=== PATIENT | female | born 1955 | race Caucasian/White ===

== ENCOUNTER 2016-11-07 03:07 | Emergency (ER) | payer SELFPAY ==
[2016-11-07] MEDS ORDERED: NARCAN 1 MG/ML IV ONE (03:08)
[2016-11-07] MEDS ORDERED: Sodium Chloride 0.9% 1000 ML 1,000 ML IV SCH (03:15)
[2016-11-07] MEDS ORDERED: Sodium Chloride 0.9% 1000 ML 1,000 ML ONE ×2 (03:17→03:35)
[2016-11-07] MEDS ORDERED: NARCAN 1 MG/ML ONE (03:17)
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
[2016-11-07 03:36] LABS: Mean Corpuscular Hemoglobin 29.6 pg (26-32); Mean Platelet Volume 11.7 fl (6-9.5); Platelet Count 167 K/mm3 (150-450); Red Blood Count 3.98 M/mm3 (4.1-5.4); Red Cell Distribution Width 14.4 % (11.5-14.0); White Blood Count 11.4 K/mm3 (4.0-10.5)
[2016-11-07 03:41] LABS: A-aADO2 614; ARTERIAL BLD GAS O2 SATURATION 92.3 % (95-100); ARTERIAL BLOOD GAS BASE EXCESS -12.4 (-2.0-2.0); ARTERIAL BLOOD GAS FIO2 100 %; ARTERIAL BLOOD GAS PO2 52 mmHg (75-100)
[2016-11-07] MEDS ORDERED: Zosyn 3.375GM/100 Ml D5W 100 ML IV ONE ×2 (03:58→04:21)
[2016-11-07 04:26] LABS: ALBUMIN 3.2 g/dL (3.4-5.0); ALKALINE PHOSPHATASE 107 U/L (46-116); ANION GAP 29.2 MEQ/L (5-15); BILIRUBIN,TOTAL 0.4 mg/dL (0.2-1.0); BLOOD UREA NITROGEN 79 mg/dL (9-20); CHLORIDE 102 mEq/L (98-107); Glucose 101 MG/DL (70-110); SGOT/AST 84 U/L (15-37); SGPT/ALT 25 U/L (12-78); SODIUM 137 mEq/L (136-145); Total Protein 6.3 gm/dL (6.4-8.2)
[2016-11-07 04:28] LABS: Carbon Dioxide 13.4 mEq/L (21-32)
[2016-11-07 04:29] LABS: ACETAMINOPHEN < 2.0 ug/ml (10-30); TROPONIN 0.059 ng/ml (0.000-0.056)
[2016-11-07 04:52] LABS: ALLEN TEST OK? NO
[2016-11-07 04:58] LABS: BAND 8 % (0.0-2.0); Platelet Estimate NORMAL (NORMAL); Total Cells Counted 100
[2016-11-07 05:02] LABS: Bacteria MODERATE /HPF (NEGATIVE); COMPLETE URINE MICROSCOPIC? YES; Collection Type CATH; Epithelial Cells FEW /HPF (FEW); Mucus SLIGHT /HPF (NEGATIVE); Ph 5.5 (5-6)
[2016-11-07] MEDS ORDERED: NovoLIN R IV ONE (05:03)
[2016-11-07] MEDS ORDERED: D50W 50 ml Abboject IV ONE (05:04)
[2016-11-07] MEDS ORDERED: NovoLIN R ONE (05:07)
[2016-11-07] MEDS ORDERED: Sodium Bicarbonate 50 MEQ/50 ML VIAL ONE (05:07)
[2016-11-07 05:09] LABS: A-aADO2 600; ARTERIAL BLD GAS O2 SATURATION 86.7 % (95-100); ARTERIAL BLOOD GAS BASE EXCESS -14.4 (-2.0-2.0); ARTERIAL BLOOD GAS FIO2 100 %; ARTERIAL BLOOD GAS pH 7.08 (7.35-7.45)
[2016-11-07 05:09] LABS: LIPASE 612 U/L (73-393)
[2016-11-07 05:10] LABS: ARTERIAL BLOOD GAS PO2 48 mmHg (75-100)
[2016-11-07] MEDS ORDERED: Sodium Chloride 0.9% 100 ML IVPB 100 ML IV ONE (05:13)
[2016-11-07] MEDS ORDERED: Sodium Bicarbonate 50 MEQ/50 ML VIAL IV SCH (05:15)
[2016-11-07 05:23] LABS: A-aADO2 608; ARTERIAL BLD GAS O2 SATURATION 83.4 % (95-100); ARTERIAL BLOOD GAS BASE EXCESS -13.8 (-2.0-2.0); ARTERIAL BLOOD GAS FIO2 100 %
[2016-11-07 05:24] LABS: ARTERIAL BLOOD GAS PO2 43 mmHg (75-100)
[2016-11-07 05:25] LABS: ARTERIAL BLD GAS TIDAL VOLUME 500 cc
[2016-11-07 06:46] VITALS: BP 80/50; PULSE 60; O2SAT 93
--- NOTE | 2016-11-07 08:41 | XRAY ---
Indication: Altered mental status. Unresponsive. History of ovarian cancer. Comparison: October 18, 2016 Portable chest unchanged again hyperinflated with scattered calcified granulomas. No focal infiltrate, consolidation, or large effusion. Heart is not enlarged. No new/acute findings. Impression: Stable nonacute chest with again evidence for old granulomatous disease.
--- NOTE | 2016-11-07 08:45 | XRAY ---
Indication: Endotracheal tube repositioning. Comparison: Earlier in the day. Portable chest demonstrates endotracheal tube withdrawal with the tip now 4 cm above the [place]. Stable underinflated left lung and left base atelectasis. New right base infiltrate/atelectasis. Heart is not enlarged.
--- NOTE | 2016-11-07 08:45 | XRAY ---
Indication: Intubation. Comparison: Earlier in the day. Portable chest demonstrates new endotracheal tube with the tip in the right mainstem bronchus. Subsequent left lung underinflation with left base atelectasis. Follow-up chest radiograph demonstrates good repositioning.
--- NOTE | 2016-11-07 08:56 | XRAY ---
Indication: Altered mental status. Unresponsive. Multiple contiguous axial images obtained through the head without contrast. Comparison: June 14, 2016 Study slightly degraded by motion artifact even with repeat CT. There is now a 2 cm round hypodensity in the inferior right cerebellum with possible smaller focus in the left cerebellum, mass versus ischemic event. No gross acute intracranial hemorrhage, abnormal extra-axial fluid collection, or mass effect. Fourth ventricle is midline without hydrocephalus. Cerebral abdalla-white matter differentiation preserved. Bony calvarium intact. Visualized paranasal sinuses and mastoid air cells are clear. Impression: Motion artifact. New bilateral cerebellar hypoattenuations, mass versus ischemia. No acute hemorrhage or mass effect. MRI brain with contrast may yield further information. Comment: Preliminary interpretation was made by [facility]. No discrepancy. CT DI 60.80
== END 2016-11-07 05:40 | disposition critical access hospital (66) ==
LOC: ED 03:07
DX: I63.9 Cerebral infarction, unspecified (principal); T68.XXXA Hypothermia, initial encounter; J96.00 Acute respiratory failure, unspecified whether with hypoxia or hypercapnia; R74.0 Nonspecific elevation of levels of transaminase and lactic acid dehydrogenase [LDH]; J44.9 Chronic obstructive pulmonary disease, unspecified; I10 Essential (primary) hypertension; K21.9 Gastro-esophageal reflux disease without esophagitis; Z79.899 Other long term (current) drug therapy; H61.23 Impacted cerumen, bilateral
CPT/HCPCS: 31500; 36000; 36415; 36600; 51702; 70450; 71010; 80053; 80307; 80320; 81000; 82150; 82375; 82803; 82947; 82962; 83605; 83690; 83986; 84484; 85025; 87040; 93005; 93041; 94002; 94770; 96360; 96361; 96365; 96367; 96374; 96375; 99285; 99291; 99292; G0479; G0481; J2310; J2543

== ENCOUNTER 2017-01-31 14:13 | Observation (INO) | payer SELFPAY ==
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
[2017-01-31] MEDS ORDERED: Sodium Chloride 0.9% 1000 ML 1,000 ML IV SCH (14:45)
[2017-01-31] MEDS ORDERED: Sodium Chloride 0.9% 1000 ML 1,000 ML ONE (14:45)
[2017-01-31 15:13] LABS: Eosinophil % 0.5 % (0.00-5.0); Lymphocytes % 20.2 % (24.0-44.0); Mean Cell Volume 92.8 fl (78-100); Mean Platelet Volume 10.8 fl (6-9.5); Monocytes % 12.3 % (0.0-12.0); Platelet Count 107 K/mm3 (150-450); Red Blood Count 3.77 M/mm3 (4.1-5.4); Red Cell Distribution Width 14.2 % (11.5-14.0)
[2017-01-31 15:14] LABS: Mean Corpuscular Hemoglobin 29.9 pg (26-32)
[2017-01-31 15:23] LABS: ALBUMIN 3.6 g/dL (3.4-5.0); ALKALINE PHOSPHATASE 82 U/L (46-116); ANION GAP 14.2 MEQ/L (5-15); BILIRUBIN,TOTAL 0.4 mg/dL (0.2-1.0); BLOOD UREA NITROGEN 7 mg/dL (9-20); CHLORIDE 103 mEq/L (98-107); Carbon Dioxide 25.2 mEq/L (21-32); Glucose 88 MG/DL (70-110); Potassium 3.7 mEq/L (3.5-5.1); SGOT/AST 25 U/L (15-37); SGPT/ALT 22 U/L (12-78); SODIUM 139 mEq/L (136-145); Total Protein 6.4 gm/dL (6.4-8.2)
--- NOTE | 2017-01-31 15:36 | XRAY ---
Exam: AP portable chest film from 1446 hrs. on 01/31/2017. Comparison: AP supine portable chest film from 11/07/2016. Indication: Patient earlier today and was found wandering around neighborhood confused, history of strokes. Findings: Previously noted bibasilar airspace disease on 11/07/2016 has resolved. The transverse heart size appears within normal limits for this AP portable technique. There is mild tortuosity of both the ascending and descending thoracic aorta. Scattered small calcified granulomas are seen within the elsie, carinal region, distal right paratracheal projection, and both lung gardner consistent with old healed granulomatous disease. No air space infiltrates, vascular congestion, pneumothorax, or pleural fluid is seen. I note some surgical clips within the right upper quadrant. In addition, there are at least several adjacent calcifications within the right upper quadrant which appear to be due to gallstones, as seen on the CT of the abdomen from 03/13/2015. No acute osseous process is seen. Mild convexity of the upper thoracic spine toward the left is seen. Impression: 1. No acute cardiopulmonary process is seen. Prior bibasilar airspace disease on 11/07/2016 has resolved. 2. Old healed granulomatous disease. 3. Cholelithiasis.
--- NOTE | 2017-01-31 17:03 | XRAY ---
Exam: CT of the head without IV contrast from 01/31/2017. CTDI: 60.80. Comparison: CT of the head without IV contrast from 11/07/2016. Indication: Confusion, family states patient has history of strokes. Found by family member in seated position foaming at mouth unresponsive Technique: Non-IV contrast axial images were obtained through the brain. Reconstructed coronal and sagittal images were created and reviewed. Findings: The ventricles appear of normal size. No focal mass effect or midline shift is seen. Motion artifact limits the study despite some repeat images. I see no acute intracranial bleed or abnormal extra-axial fluid collection. I see atherosclerotic vascular calcification within the distal vertebral arteries, left greater than right. Previously described low-attenuation lesions within the cerebellar hemispheres are not definitely seen on the current study. I again note extensive white matter changes within both frontal regions representing no significant change, likely due to microvascular disease. I see evidence of an old focal infarct within the right caudate nucleus, the anterior margin of the left caudate nucleus, and within the left lentiform nucleus. This appears similar to the previous study. Prior low-attenuation probable infarct within the medial margin of the right lentiform nucleus is not seen on the current study. No new definite new low attenuation infarcts are seen. The cortical sulci and basilar cisterns appear unremarkable. The calvarium of the skull appears intact. Mild mucosal thickening is seen within the right ethmoid sinus and right side of the frontal sinus. There is also some minor mucosal thickening within left side of the sphenoid sinus. These findings are probably chronic. The mastoid air cells appear clear. Impression: 1. The study is motion limited. 2. I see no evidence of acute intracranial hemorrhage, focal mass effect, or midline shift. 3. There appear to be bilateral lacunar infarcts within or adjacent to the head of each caudate nucleus and the left lentiform nucleus representing no significant change from 11/07/2016. Prior low-attenuation lesion at the medial aspect of the right lentiform nucleus is not definitely seen on the current study. Neither do I see evidence of cerebellar infarcts, as questioned on the prior study of 11/07/2016. 4. Extensive periventricular and subcortical white matter changes are seen within the bifrontal region, likely due to chronic small vessel ischemic disease. 5. Extensive atherosclerotic vascular calcification is seen within the distal vertebral arteries, left greater than right. Consider diabetes. 6. Minimal chronic paranasal sinus disease as discussed above. No air-fluid levels are seen.
[2017-01-31] MEDS ORDERED: NORCO 7.5/325 MG TAB PO PRN (17:53)
[2017-01-31 18:20] LABS: COMPLETE URINE MICROSCOPIC? YES; Collection Type CATH
[2017-01-31 18:21] LABS: Bacteria MANY /HPF (NEGATIVE)
[2017-01-31] MEDS: Sodium Chloride 0.9% 1000 ML 1,000 ML IV SCH (20:08)
[2017-01-31] MEDS: NEURONTIN 300 MG PO SCH (22:22)
[2017-01-31] MEDS: Klonopin 0.5 MG PO SCH (22:22)
[2017-02-01] MEDS: Sodium Chloride 0.9% 1000 ML 1,000 ML IV SCH (08:20)
[2017-02-01] MEDS: NEURONTIN 300 MG PO SCH ×3 (08:20→20:44)
[2017-02-01] MEDS: Klonopin 0.5 MG PO SCH (08:20)
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
--- NOTE | 2017-02-01 08:55 | PCM.NOTE ---
Date and Time: 02/01/17 0843 Subjective Assessment: Her nurse reports she was alert and oriented x 3 for her last night. This AM she says the year is 2012 and that she is at the half-way in [place]. She reports her name is Jaye Duenas. She denies pain. She cannot give me the phone number of a friend when I asked if there was someone I could call to see how she had been doing at home. Notes from Dr. Qiu say she was on hospice when released from [facility] in October but that she was then taken off hospice. His not also says she did not give complete answers when answering questions and that she was unsteady on her feet. - Review of Systems Constitutional: No Symptoms Eyes: No Symptoms Ears, Nose, & Throat: No Symptoms Respiratory: No Symptoms Cardiac: No Symptoms Abdominal/Gastrointestinal: No Symptoms Genitourinary Symptoms: Dysuria Musculoskeletal: No Symptoms Skin: No Symptoms Neurological: No Symptoms Objective Exam General Appearance: no apparent distress, thin Neurologic Exam: alert, other (not oriented to person, place or time) Skin Exam: normal color, warm, dry Respiratory Exam: normal breath sounds, lungs clear, airway intact, No respiratory distress, No crackles/rales, No rhonchi, No wheezing Cardiovascular Exam: regular rate/rhythm, normal heart sounds, No murmur, No friction rub, No gallop Gastrointestinal/Abdomen Exam: soft, normal bowel sounds, No tenderness, No distention, No mass Extremity Exam: normal inspection, other (no c/c/e) OBJECTIVE DATA Vital Signs: Vital Signs - 24 hr Temp Pulse Resp BP Pulse Ox 02/01/17 08:00 98.7 F 77 20 106/67 96 02/01/17 04:00 98.7 F 67 16 113/59 97 01/31/17 23:38 98.7 F 73 15 123/72 98 01/31/17 19:40 99.1 F 74 16 127/62 99 01/31/17 18:41 98.1 F 71 18 120/81 98 01/31/17 17:55 98 01/31/17 17:03 71 18 120/81 99 01/31/17 16:11 81 107/74 98 01/31/17 14:19 98.1 F 74 18 102/67 98 Pain Assessment - Last Documented Pain Intensity 3 Pain Scale Used 0-10 Pain Scale Intake and Output: Intake & Output 01/30/17 01/31/17 02/01/17 02/02/17 06:59 06:59 06:59 06:59 Intake Total 680 Balance 680 Weight 58.967 kg Lab Results: Lab Results-Last 24 Hours 01/31/17 02/01/17 02/01/17 Range/Units 21:00 00:00 03:00 Troponin I < 0.017 < 0.017 < 0.017 (0.000-0.056) ng/ml Assessment/Plan (1) Altered mental status Current Visit: Yes Status: Acute Assessment & Plan: Will check CMP today, Vit B 12, folate and TSH. Will try to also obtain records from [facility]. She needs a social service evaluation and discharge planning consult. Will have PT access her gait. Code(s): R41.82 - ALTERED MENTAL STATUS, UNSPECIFIED
[2017-02-01] MEDS: TYLENOL 325 MG PO PRN ×2 (09:06→19:24)
[2017-02-01] MEDS: Cipro 500 MG PO SCH ×2 (09:06→20:44)
[2017-02-01] MEDS ORDERED: Zestril 20 MG*** 20 MG, hydroDIURIL 25 MG*** 12.5 MG PO SCH ×2 (10:00)
[2017-02-01 10:24] LABS: ALBUMIN 3.2 g/dL (3.4-5.0); ALKALINE PHOSPHATASE 77 U/L (46-116); ANION GAP 11.6 MEQ/L (5-15); BILIRUBIN,TOTAL 0.3 mg/dL (0.2-1.0); BLOOD UREA NITROGEN 8 mg/dL (9-20); CHLORIDE 108 mEq/L (98-107); Carbon Dioxide 25.1 mEq/L (21-32); Glucose 109 MG/DL (70-110); Potassium 3.6 mEq/L (3.5-5.1); SGOT/AST 25 U/L (15-37); SGPT/ALT 23 U/L (12-78); SODIUM 141 mEq/L (136-145); Total Protein 5.6 gm/dL (6.4-8.2)
[2017-02-01] MEDS: Lexapro 10 MG PO SCH (14:33)
[2017-02-01] MEDS: THERAGRAN MULTIVITAMIN PO SCH (14:33)
[2017-02-01] MEDS: ECOTRIN 81 MG PO SCH (14:33)
[2017-02-01] MEDS: Klonopin 0.5 MG PO PRN (14:33)
[2017-02-02] MEDS: TYLENOL 325 MG PO PRN ×2 (04:20→13:16)
[2017-02-02] MEDS: ECOTRIN 81 MG PO SCH (09:49)
[2017-02-02] MEDS: Cipro 500 MG PO SCH ×2 (09:49→22:30)
[2017-02-02] MEDS: THERAGRAN MULTIVITAMIN PO SCH (09:49)
[2017-02-02] MEDS: NEURONTIN 300 MG PO SCH ×3 (09:49→22:30)
[2017-02-02] MEDS: Lexapro 10 MG PO SCH (09:49)
[2017-02-02] MEDS ORDERED: BABY ASPIRIN 81 MG CHEW PO SCH (10:00)
[2017-02-02] MEDS ORDERED: NON-FORMULARY ITEM (Multivitamin [Multi-Vitamin Daily] 1 EACH) PO SCH (10:00)
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
[2017-02-02] MEDS: Klonopin 0.5 MG PO PRN (22:32)
[2017-02-03] MEDS: TYLENOL 325 MG PO PRN ×2 (08:17→15:39)
--- NOTE | 2017-02-03 09:07 | PCM.NOTE ---
Date and Time: 02/03/17902 Subjective Assessment: Please see addiction social worker's note and [facility] note which I reviewed. Patient states that her right knee hurts a little and she has been walking a little more so that is why it is sore. She denies pain anywhere else. - Review of Systems Constitutional: No Symptoms Eyes: No Symptoms Ears, Nose, & Throat: No Symptoms Respiratory: No Symptoms Cardiac: No Symptoms Abdominal/Gastrointestinal: No Symptoms Genitourinary Symptoms: No Symptoms Musculoskeletal: Joint Pain Skin: No Symptoms Objective Exam General Appearance: no apparent distress, alert Neurologic Exam: alert, other (She state she is at [facility] and the year is 19-- and she does know her name) Skin Exam: normal color, warm, dry, No rash Neck Exam: normal inspection Respiratory Exam: normal breath sounds, lungs clear, airway intact, No crackles/ rales, No rhonchi, No wheezing Cardiovascular Exam: regular rate/rhythm, normal heart sounds, No murmur, No friction rub, No gallop Gastrointestinal/Abdomen Exam: soft, normal bowel sounds, No tenderness, No distention, No mass Extremity Exam: normal inspection, other (no c/c/e, no swelling or erythyema of right knee, no brusing of knee) OBJECTIVE DATA Vital Signs: Vital Signs - 24 hr Temp Pulse Resp BP Pulse Ox 02/03/17 08:00 99.3 F 82 18 106/57 93 L 02/03/17 04:00 98.5 F 78 18 127/65 97 02/02/17 23:58 98.8 F 71 18 141/60 97 02/02/17 20:00 99.3 F 80 16 141/72 97 02/02/17 16:10 97.6 F 97 H 20 124/58 96 02/02/17 12:12 97.9 F 68 18 123/75 96 Pain Assessment - Last Documented Pain Intensity 5 Pain Scale Used 0-10 Pain Scale Intake and Output: Intake & Output 02/01/17 02/02/17 02/03/17 02/04/17 06:59 06:59 06:59 06:59 Intake Total 680 1800 1400 Output Total 2000 Balance 680 -200 1400 Weight 58.967 kg 58.967 kg Assessment/Plan (1) Altered mental status Current Visit: Yes Status: Acute Assessment & Plan: She had a competency evaluation and is not competent to make her own medical decisions. APS has been consulted and the social work that saw her is recommending placement in a nursing facility. Discharge planning is working on her insurance coverage. Patient appears to be at her baseline mental status from the reports we have received from [facility] PCP and [facility]. Code(s): R41.82 - ALTERED MENTAL STATUS, UNSPECIFIED (2) UTI (urinary tract infection) Current Visit: Yes Status: Acute Assessment & Plan: Continue cipro. Urine cx growing gram neg michele. Code(s): N39.0 - URINARY TRACT INFECTION, SITE NOT SPECIFIED
[2017-02-03] MEDS: ECOTRIN 81 MG PO SCH (10:18)
[2017-02-03] MEDS: Lexapro 10 MG PO SCH (10:18)
[2017-02-03] MEDS: THERAGRAN MULTIVITAMIN PO SCH (10:18)
[2017-02-03] MEDS: Cipro 500 MG PO SCH ×2 (10:18→22:07)
[2017-02-03] MEDS: NEURONTIN 300 MG PO SCH ×3 (10:18→22:07)
[2017-02-03] MEDS: Klonopin 0.5 MG PO PRN (22:07)
[2017-02-04] MEDS: ECOTRIN 81 MG PO SCH (10:29)
[2017-02-04] MEDS: Lexapro 10 MG PO SCH (10:29)
[2017-02-04] MEDS: NEURONTIN 300 MG PO SCH ×3 (10:29→22:36)
[2017-02-04] MEDS: THERAGRAN MULTIVITAMIN PO SCH (10:29)
[2017-02-04] MEDS: Cipro 500 MG PO SCH ×2 (10:35→22:45)
[2017-02-04] MEDS: Klonopin 0.5 MG PO PRN ×2 (10:35→22:36)
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
[2017-02-04] MEDS: Nicoderm CQ 21 MG TOP SCH (11:09)
[2017-02-04] MEDS: TYLENOL 325 MG PO PRN (14:17)
--- NOTE | 2017-02-05 08:21 | PCM.NOTE ---
Date and Time: 02/05/17818 Subjective Assessment: patient oriented to self, disoriented to place or time. thinks she is in [place] and the year is 1999 something and the month if nov or december. Objective Exam General Appearance: no apparent distress, thin Neurologic Exam: alert Skin Exam: normal color, warm, dry Respiratory Exam: normal breath sounds, lungs clear, No respiratory distress Cardiovascular Exam: regular rate/rhythm, normal heart sounds Gastrointestinal/Abdomen Exam: soft, No tenderness, No mass OBJECTIVE DATA Vital Signs: Vital Signs - 24 hr Temp Pulse Resp BP Pulse Ox 02/05/17 07:15 98.2 F 68 18 142/71 98 02/05/17 04:00 98.4 F 70 16 114/68 95 02/05/17 00:00 98.0 F 69 15 106/63 95 02/04/17 20:00 98.9 F 72 14 127/74 94 L 02/04/17 16:00 98.7 F 65 20 127/74 96 02/04/17 11:40 99.0 F 66 17 156/72 94 L Pain Assessment - Last Documented Pain Intensity 7 Pain Scale Used [facility] Intake and Output: Intake & Output 02/02/17 02/03/17 02/04/17 02/05/17 11:59 11:59 11:59 11:59 Intake Total 1800 1640 1750 800 Output Total 2000 900 900 Balance -200 1640 850 -100 Weight 58.967 kg Assessment/Plan (1) Altered mental status Current Visit: Yes Status: Acute Assessment & Plan: awaiting APS recommendations apparently Code(s): R41.82 - ALTERED MENTAL STATUS, UNSPECIFIED (2) UTI (urinary tract infection) Current Visit: Yes Status: Acute Assessment & Plan: on cipro Code(s): N39.0 - URINARY TRACT INFECTION, SITE NOT SPECIFIED
[2017-02-05] MEDS: NEURONTIN 300 MG PO SCH ×3 (09:23→21:39)
[2017-02-05] MEDS: THERAGRAN MULTIVITAMIN PO SCH (09:23)
[2017-02-05] MEDS: ECOTRIN 81 MG PO SCH (09:23)
[2017-02-05] MEDS: Cipro 500 MG PO SCH ×2 (09:23→21:38)
[2017-02-05] MEDS: Lexapro 10 MG PO SCH (09:23)
[2017-02-05] MEDS: Nicoderm CQ 21 MG TOP SCH (09:24)
[2017-02-05] MEDS: Klonopin 0.5 MG PO PRN ×2 (14:58→21:39)
--- NOTE | 2017-02-06 08:43 | PCM.NOTE ---
Date and Time: 02/06/17 0840 Subjective Assessment: I was at the nurses station getting ready to go see Jaye and she came up to me and asked if I could tell her what room she was in because she forgot. She has been in the same room since her admission 01/31/17. She reports she has a little dysuria. She denies pain. She is talking about jumping in her room looking for her medicine because it was there and then Taco locked it up and she reports he is now in [place] and that he left her a note saying he went to [place]. - Review of Systems Constitutional: No Symptoms Eyes: No Symptoms Ears, Nose, & Throat: No Symptoms Respiratory: No Symptoms Cardiac: No Symptoms Abdominal/Gastrointestinal: No Symptoms Genitourinary Symptoms: Dysuria Musculoskeletal: No Symptoms Skin: No Symptoms Neurological: No Symptoms Objective Exam General Appearance: no apparent distress, alert Neurologic Exam: alert, cooperative Skin Exam: normal color, warm, dry, No rash Respiratory Exam: normal breath sounds, lungs clear, No crackles/rales, No rhonchi, No wheezing Cardiovascular Exam: regular rate/rhythm, normal heart sounds, No murmur, No friction rub, No gallop Gastrointestinal/Abdomen Exam: soft, normal bowel sounds, No tenderness, No distention, No mass Extremity Exam: other (no c/c/e) OBJECTIVE DATA Vital Signs: Vital Signs - 24 hr Temp Pulse Resp BP Pulse Ox 02/06/17 08:00 98.2 F 73 18 117/63 95 02/06/17 04:00 98.3 F 67 13 102/57 95 02/06/17 00:00 98.2 F 68 20 118/60 97 02/05/17 19:56 99.1 F 75 13 116/67 94 L 02/05/17 15:48 98.2 F 97 H 18 138/75 98 02/05/17 12:00 99.0 F 67 18 127/76 94 L Pain Assessment - Last Documented Pain Intensity 7 Pain Scale Used [facility] Intake and Output: Intake & Output 02/04/17 02/05/17 02/06/17 02/07/17 06:59 06:59 06:59 06:59 Intake Total 2120 1150 2360 Output Total 900 900 Balance 0439 [id number] [id number] Assessment/Plan (1) Altered mental status Current Visit: Yes Status: Acute Assessment & Plan: Continues to be unchanged from what must be her baseline. Awaiting APS recommendations. Code(s): R41.82 - ALTERED MENTAL STATUS, UNSPECIFIED (2) UTI (urinary tract infection) Current Visit: Yes Status: Acute Assessment & Plan: Completed cipro. Code(s): N39.0 - URINARY TRACT INFECTION, SITE NOT SPECIFIED (3) Dysuria Current Visit: Yes Status: Acute Assessment & Plan: Will check high risk profile for STD's. Code(s): R30.0 - DYSURIA
[2017-02-06] MEDS: THERAGRAN MULTIVITAMIN PO SCH (09:18)
[2017-02-06] MEDS: Lexapro 10 MG PO SCH (09:18)
[2017-02-06] MEDS: NEURONTIN 300 MG PO SCH ×3 (09:19→21:32)
[2017-02-06] MEDS: ECOTRIN 81 MG PO SCH (09:19)
[2017-02-06] MEDS: Nicoderm CQ 21 MG TOP SCH (09:21)
[2017-02-06] MEDS: Klonopin 0.5 MG PO PRN ×2 (12:28→21:33)
[2017-02-06] MEDS: TYLENOL 325 MG PO PRN (13:49)
[2017-02-07] MEDS: TYLENOL 325 MG PO PRN ×3 (05:37→15:07)
--- NOTE | 2017-02-07 08:21 | PCM.NOTE ---
Date and Time: 02/07/17817 Subjective Assessment: Patient denies constipation. States her appetite has been good. She states she is ready to go home and that she plans to go to her dad's in [place]. I explained that we are waiting on another group of people to see her to make sure that when she is discharged that she is in a safe place. - Review of Systems Constitutional: No Symptoms Eyes: No Symptoms Ears, Nose, & Throat: No Symptoms Respiratory: No Symptoms Cardiac: No Symptoms Abdominal/Gastrointestinal: No Symptoms Genitourinary Symptoms: No Symptoms Musculoskeletal: No Symptoms Skin: No Symptoms Objective Exam General Appearance: no apparent distress, alert Neurologic Exam: alert, cooperative, other (Says year is 2013 and that she is at [facility]. She knows her name.) Skin Exam: normal color, warm, dry, No rash Respiratory Exam: normal breath sounds, lungs clear, No crackles/rales, No rhonchi, No wheezing Cardiovascular Exam: regular rate/rhythm, normal heart sounds, No murmur, No friction rub, No gallop Gastrointestinal/Abdomen Exam: soft, normal bowel sounds, No tenderness, No distention, No mass Extremity Exam: normal inspection, other (no c/c/e) OBJECTIVE DATA Vital Signs: Vital Signs - 24 hr Temp Pulse Resp BP Pulse Ox 02/07/17 07:43 98.5 F 63 17 128/81 97 02/07/17 04:00 98.2 F 65 18 126/59 97 02/07/17 00:00 16 02/06/17 20:00 99.0 F 76 21 141/80 93 L 02/06/17 16:00 98.0 F 63 18 132/73 98 02/06/17 12:00 98.8 F 72 20 136/79 96 Pain Assessment - Last Documented Pain Intensity 6 Pain Scale Used [facility] Intake and Output: Intake & Output 02/05/17 02/06/17 02/07/17 02/08/17 06:59 06:59 06:59 06:59 Intake Total 1150 2360 1760 Output Total 900 Balance 250 2360 1760 Multi-Disciplinary Progress Notes: Multi-Disciplinary Progress Notes 02/06/17 09:45 (created 02/06/17 11:33) Case Management Note by Nathaly Khan REVIEWED DISCHARGE PLAN. CONTINUE TO AWAIT APS TO VISIT. PT CONTINUES TO BE CONFUSED AT TIMES. REDIRECTED TO ROOM. PLEASANT AND COOPERATIVE. WILL CONTINUE TO FOLLOW FOR ALL DC NEEDS. Initialized on 02/06/17 11:33 - END OF NOTE Assessment/Plan (1) Altered mental status Current Visit: Yes Status: Acute Assessment & Plan: Continue to await APS visit and recommendation on placement or safe place for discharge. Seems to be at her baseline. Code(s): R41.82 - ALTERED MENTAL STATUS, UNSPECIFIED (2) UTI (urinary tract infection) Current Visit: Yes Status: Resolved Code(s): N39.0 - URINARY TRACT INFECTION , SITE NOT SPECIFIED (3) Dysuria Current Visit: Yes Status: Acute Assessment & Plan: High risk profile ordered which includes urine for GC/CT. Code(s): R30.0 - DYSURIA
[2017-02-07] MEDS: ECOTRIN 81 MG PO SCH (11:02)
[2017-02-07] MEDS: THERAGRAN MULTIVITAMIN PO SCH (11:02)
[2017-02-07] MEDS: Nicoderm CQ 21 MG TOP SCH (11:02)
[2017-02-07] MEDS: Lexapro 10 MG PO SCH (11:02)
[2017-02-07] MEDS: NEURONTIN 300 MG PO SCH ×3 (11:02→22:16)
[2017-02-07] MEDS: Klonopin 0.5 MG PO PRN ×2 (11:02→22:16)
[2017-02-07 12:22] LABS: Hepatits B Sur Ag Screen Non Reactive (Non Reactive); Hepatits C Antibody by EIA Weak Reactive (Non Reactive)
[2017-02-07 12:23] LABS: Hepatitis B Surface Ab.Quant <3.50 mIU/mL (0.00-8.49)
[2017-02-08] MEDS: TYLENOL 325 MG PO PRN ×2 (05:12→20:56)
--- NOTE | 2017-02-08 08:27 | PCM.NOTE ---
Date and Time: 02/08/17820 Subjective Assessment: While she said she was going to stay with her dad, today she says he has and she talked to her mom and is planning on staying with her. She denies constipation or shortness of breath. She reports she has been mad about Mehran and states that she yelled at him while she was here but I don't see any nursing notes to this affect. - Review of Systems Constitutional: No Symptoms Eyes: No Symptoms Ears, Nose, & Throat: No Symptoms Respiratory: No Symptoms Cardiac: No Symptoms Abdominal/Gastrointestinal: No Symptoms Genitourinary Symptoms: No Symptoms Musculoskeletal: No Symptoms Skin: No Symptoms Objective Exam General Appearance: no apparent distress Neurologic Exam: alert, cooperative Skin Exam: normal color, warm, dry, No rash Respiratory Exam: normal breath sounds, lungs clear, No crackles/rales, No rhonchi, No wheezing Cardiovascular Exam: regular rate/rhythm, normal heart sounds, No murmur, No friction rub, No gallop Gastrointestinal/Abdomen Exam: soft, normal bowel sounds, No tenderness, No distention, No mass Extremity Exam: other (no c/c/e) OBJECTIVE DATA Vital Signs: Vital Signs - 24 hr Temp Pulse Resp BP Pulse Ox 02/08/17 07:46 98.2 F 64 20 122/67 98 02/08/17 04:00 98.3 F 76 16 132/70 95 02/08/17 00:00 97.9 F 65 14 110/56 96 02/07/17 20:00 99.0 F 70 15 128/74 95 02/07/17 16:00 99.0 F 70 17 122/84 97 02/07/17 12:00 98.1 F 65 18 135/63 96 Pain Assessment - Last Documented Pain Intensity 6 Pain Scale Used 0-10 Pain Scale Intake and Output: Intake & Output 02/06/17 02/07/17 02/08/17 02/09/17 06:59 06:59 06:59 06:59 Intake Total 2360 1760 940 Balance 2360 1760 940 Lab Results: Lab Results-Last 24 Hours 02/06/17 Range/Units 13:00 Hep Bs Antigen Non Reactive (Non Reactive) Hep Bs Antibody, Quant <3.50 (0.00-8.49) mIU/mL Hepatitis C Antibody Weak Reactive H (Non Reactive) HIV Ag/Ab Combo Qual Pending HIV Ag/Ab Interpret Pending Assessment/Plan (1) Altered mental status Current Visit: Yes Status: Acute Assessment & Plan: At her baseline it appears. Awaiting APS recommendations. She will need a safe place to go upon her discharge. Code(s): R41.82 - ALTERED MENTAL STATUS, UNSPECIFIED (2) Hepatitis C antibody positive in blood Current Visit: Yes Status: Acute Assessment & Plan: Checking HCV RNA. The rest of the high risk profile is pending Code(s): R76.8 - OTHER SPECIFIED ABNORMAL IMMUNOLOGICAL FINDINGS IN SERUM
[2017-02-08] MEDS: Nicoderm CQ 21 MG TOP SCH (09:51)
[2017-02-08] MEDS: Lexapro 10 MG PO SCH (09:51)
[2017-02-08] MEDS: NEURONTIN 300 MG PO SCH ×3 (09:51→20:56)
[2017-02-08] MEDS: THERAGRAN MULTIVITAMIN PO SCH (09:51)
[2017-02-08] MEDS: ECOTRIN 81 MG PO SCH (09:51)
[2017-02-08 11:52] LABS: Collection Type CCMS
[2017-02-08 11:53] LABS: ADD URINE CULTURE? NO (NO); COMPLETE URINE MICROSCOPIC? NO
[2017-02-08 13:59] LABS: CHLAMYDIA URINE NEGATIVE; GC URINE NEGATIVE
--- NOTE | 2017-02-08 14:11 | PCM.DCORD ---
- Discharge Discharge Date: 02/08/17 Disposition: DC TO ANY "OTHER" CUSTODIAL Condition: Fair Prescriptions: New Nicotine 21 mg [Nicoderm CQ 21 MG] 21 mg TOP Q24H10 #0 patch Acetaminophen 325 mg [Tylenol 325 mg] 650 mg PO Q4H PRN PRN #0 tablet PRN Reason: Pain And/Or Fever Continue Multivitamin [Multi-Vitamin Daily] 1 each PO DAILY Aspirin 81 gm Chew [Baby Aspirin 81 mg Chew] 81 mg PO DAILY Escitalopram Oxalate 10 mg [Lexapro 10 MG] 10 mg PO DAILY Gabapentin 300 mg PO TID Clonazepam 0.5 mg [Klonopin 0.5 MG] 0.5 mg PO BIDPRN PRN #60 tab PRN Reason: Anxiety Discontinued Hydrocodone Bit/Acetaminophen [[place] 7.5-325 Tablet] 1 each PO Q4-6HPRN PRN PRN Reason: Pain Lisinopril/Hctz 20/12.5 mg [Lisinopril/ Hctz 20/12.5] 20 mg PO DAILY Additional Instructions: Follow up with provider at [facility].
[2017-02-08] MEDS: Klonopin 0.5 MG PO PRN (20:56)
--- NOTE | 2017-02-09 08:26 | PCM.NOTE ---
Date and Time: 02/09/17820 Subjective Assessment: Ceasar, conservation planner called yesterday after discharge was put in computer that she needed a face to face before she could be placed per APS. Awaiting this before placement. See nurses note last night about patient's continued confusion. Patient states she had a bowel movement this AM. Denies any problems. - Review of Systems Constitutional: No Symptoms Eyes: No Symptoms Ears, Nose, & Throat: No Symptoms Respiratory: No Symptoms Cardiac: No Symptoms Abdominal/Gastrointestinal: No Symptoms Genitourinary Symptoms: No Symptoms Musculoskeletal: No Symptoms, Other (right knee pain (when asked)) Skin: No Symptoms Objective Exam General Appearance: no apparent distress, alert Neurologic Exam: alert, cooperative, other (Says name is Jaye Melissa, year is 2019 and she can't tell me where she is at.) Skin Exam: normal color, warm, dry, No rash Respiratory Exam: normal breath sounds, lungs clear, No crackles/rales, No rhonchi, No wheezing Cardiovascular Exam: regular rate/rhythm, normal heart sounds, No murmur, No friction rub, No gallop Gastrointestinal/Abdomen Exam: soft, normal bowel sounds, No tenderness, No distention, No mass, No guarding Extremity Exam: normal inspection, other (no c/c/e) OBJECTIVE DATA Vital Signs: Vital Signs - 24 hr Temp Pulse Resp BP Pulse Ox 02/09/17 08:00 98.6 F 77 18 128/65 95 02/09/17 04:00 97.9 F 64 14 129/65 99 02/09/17 00:00 14 02/08/17 20:00 98.5 F 74 15 123/64 96 02/08/17 16:00 98.1 F 75 18 153/78 99 02/08/17 12:00 99.2 F 73 18 186/72 100 Pain Assessment - Last Documented Pain Intensity 5 Pain Scale Used 0-10 Pain Scale Intake and Output: Intake & Output 02/07/17 02/08/17 02/09/17 02/10/17 06:59 06:59 06:59 06:59 Intake Total 4775 149 2239 Balance 2987 666 8802 Lab Results: Lab Results-Last 24 Hours 02/08/17 02/08/17 Range/Units 10:00 10:00 Ur Collection Type CCMS Urine Color YELLOW (YELLOW) Urine Appearance CLEAR (CLEAR) Urine pH 6.0 (5-6) Ur Specific [place] 1.020 (1.005-1.025) Urine Protein NEGATIVE (Negative) Urine Glucose (UA) NEGATIVE (NEGATIVE) mg/dL Urine Ketones NEGATIVE (NEGATIVE) Urine Nitrite NEGATIVE (NEGATIVE) Urine Bilirubin NEGATIVE (NEGATIVE) Urine Urobilinogen 0.2 (0-1) mg/dL Urine WBC (Auto) NEGATIVE (NEGATIVE) Urine RBC (Auto) NEGATIVE (0-5) Maik/ul Ur Chlamydia DNA Probe NEGATIVE Urine GC DNA Probe NEGATIVE Specimen Received 02-08-17 1100 Multi-Disciplinary Progress Notes: Multi-Disciplinary Progress Notes 02/08/17 14:15 (created 02/08/17 15:01) Case Management Note by Nathaly Khan CALL FROM [facility]. REPORTS THAT THEY WILL BE ABLE TO ACCEPT PT FOR SNF PLACEMENT. CALL TO INFORM DR. HUANG. Initialized on 02/08/17 15:01 - END OF NOTE 02/08/17 08:45 (created 02/08/17 15:03) Case Management Note by Nathaly Khan FAXED LETTER FROM DR. HUANG TO [facility] Initialized on 02/08/17 15:03 - END OF NOTE Assessment/Plan (1) Altered mental status Current Visit: Yes Status: Acute Assessment & Plan: Seems to be at her baseline. Awaiting placement per APS. From my standpoint, she is incompetent to make decisions for herself and she needs a guardian and APS plans to work on this and they are acting as her guardian now. Code(s): R41.82 - ALTERED MENTAL STATUS, UNSPECIFIED (2) Hepatitis C antibody positive in blood Current Visit: Yes Status: Acute Assessment & Plan: Hep C RNA ordered. Code(s): R76.8 - OTHER SPECIFIED ABNORMAL IMMUNOLOGICAL FINDINGS IN SERUM (3) History of CVA (cerebrovascular accident) without residual deficits Current Visit: Yes Status: Acute Assessment & Plan: Her altered mental status seems to be her baseline after the strokes she had as recorded in her documentation from her hospitalization at [facility] earlier this year.
[2017-02-09] MEDS: THERAGRAN MULTIVITAMIN PO SCH (08:48)
[2017-02-09] MEDS: ECOTRIN 81 MG PO SCH (08:48)
[2017-02-09] MEDS: Nicoderm CQ 21 MG TOP SCH (08:48)
[2017-02-09] MEDS: Lexapro 10 MG PO SCH (08:48)
[2017-02-09] MEDS: NEURONTIN 300 MG PO SCH ×2 (08:48→14:26)
[2017-02-09] MEDS: Klonopin 0.5 MG PO PRN (08:52)
[2017-02-09] MEDS: TYLENOL 325 MG PO PRN (09:24)
[2017-02-09 13:22] VITALS: BP 138/74; PULSE 63; O2SAT 99
[2017-02-10 21:16] LABS: HCV by PCR Viral Load 18600000 IU/mL (0-0); HCV by PCR log 7.27 LogIU/mL (0.00-0.00)
== END 2017-02-09 16:25 ==
LOC: ED 14:13 → MED SURG 18:11
PROVIDERS: ADMIT Internal Medicine; ATTEND Internal Medicine
DX: R41.82 Altered mental status, unspecified (principal); N39.0 Urinary tract infection, site not specified; R76.8 Other specified abnormal immunological findings in serum; Z86.73 Personal history of transient ischemic attack (TIA), and cerebral infarction without residual deficits; J44.9 Chronic obstructive pulmonary disease, unspecified; I10 Essential (primary) hypertension; Z79.899 Other long term (current) drug therapy; Z72.0 Tobacco use; K21.9 Gastro-esophageal reflux disease without esophagitis; R29.6 Repeated falls; Z85.43 Personal history of malignant neoplasm of ovary
CPT/HCPCS: 36000; 36415; 70450; 71010; 80053; 80307; 81000; 81002; 82607; 82746; 84443; 84484; 85025; 86317; 86592; 86701; 86702; 86803; 87040; 87077; 87086; 87186; 87340; 87389; 87491; 87522; 87591; 93005; 93041; 93268; 96360; 96361; 99285; G0378; A9270-GY

== ENCOUNTER 2017-09-15 12:05 | Inpatient (IN) | payer MEDICAID ==
[2017-09-15] MEDS ORDERED: ROCEPHIN 1 Gm-D5w 50 ml Bag** 1 G/50 ML IVPB IV STA (12:36)
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
[2017-09-15] MEDS ORDERED: Sodium Chloride 0.9% 1000 ML 1,000 ML ONE ×2 (12:46→14:41)
[2017-09-15] MEDS ORDERED: TYLENOL 325 MG PO ONE (12:52)
[2017-09-15 13:04] LABS: VBG BASE EXCESS -0.4 (-2.0-2.0); VBG CARBOXYHEMOGLOBIN 6.4 % T HGB (0.0-6.9); VBG HCO3- 22.3 meq/L (22-28); VBG HEMOGLOBIN 12.1; VBG O2 SATURATION 95.1 (95-100); VBG POTASSIUM 3.2 (3.5-5.1); VBG pH 7.48 (7.32-7.42)
[2017-09-15] MEDS ORDERED: TYLENOL 325 MG ONE (13:13)
[2017-09-15] MEDS ORDERED: ROCEPHIN 1 Gm-D5w 50 ml Bag** 1 G/50 ML IVPB IV ONE (13:13)
[2017-09-15] MEDS: Sodium Chloride 0.9% 1000 ML 1,000 ML IV SCH ×2 (13:14→14:41)
[2017-09-15 13:43] LABS: BASOPHIL % 0.1 % (0.0-0.4); Granulocytes % 81.4 % (36.0-66.0); Mean Cell Volume 86.8 fl (78-100); Mean Corpuscular Hemoglobin 29.4 pg (26-32); Mean Platelet Volume 11.8 fl (6-9.5); Monocytes % 10.5 % (0.0-12.0); Platelet Count 132 K/mm3 (150-450); Red Blood Count 3.94 M/mm3 (4.1-5.4); Red Cell Distribution Width 13.8 % (11.5-14.0); White Blood Count 12.3 K/mm3 (4.0-10.5)
[2017-09-15 14:12] LABS: ALBUMIN 3.2 g/dL (3.4-5.0); ANION GAP 16.8 MEQ/L (5-15); BILIRUBIN,TOTAL 0.7 mg/dL (0.2-1.0); Carbon Dioxide 21.5 mEq/L (21-32); Total Protein 6.7 gm/dL (6.4-8.2)
[2017-09-15 14:13] LABS: Bilirubin NEGATIVE (NEGATIVE); Collection Type CATH; Glucose NEGATIVE (NEGATIVE); Leukocyte Esterase MODERATE (NEGATIVE)
--- NOTE | 2017-09-15 14:13 | XRAY ---
Indication: Possible sepsis. Comparison: July 11, 2017. Portable chest again demonstrates scattered calcified granulomas bilaterally. No focal infiltrate, consolidation, or large effusion. Heart is not enlarged. Bony thorax intact again with mild osteopenia, degenerative changes, and old proximal left humeral fracture. Impression: Stable nonacute chest with chronic features.
[2017-09-15 14:14] LABS: Bacteria PACKED /HPF (NEGATIVE); Blood TRACE HEMOLYZED Ery/ul (0-5); COMPLETE URINE MICROSCOPIC? YES; Epithelial Cells FEW /HPF (FEW); WBC >100 /HPF (0-5)
[2017-09-15 14:15] LABS: INR 1.19 (0.8-3.0); PROTIME 13.2 SECONDS (9.95-12.35)
[2017-09-15 14:18] LABS: PTT 26.5 SECONDS (25.3-37.0)
[2017-09-15] MEDS ORDERED: Dopamine 400 MG/D5W 250ML PREMIX 250 ML IV PRN (15:00)
[2017-09-15] MEDS ORDERED: Dopamine 400 MG/D5W 250ML PREMIX 250 ML IV ONE (15:17)
[2017-09-15] MEDS ORDERED: Klor Con 10 MEQ PO ONE ×2 (15:17→15:25)
[2017-09-15] MEDS: Dopamine 400 MG/D5W 250ML PREMIX 250 ML IV PRN (15:20)
[2017-09-15] MEDS: Nicoderm CQ 21 MG TOP SCH (17:15)
[2017-09-15] MEDS: Zofran 4 MG/2 ML VIAL IV PRN (17:15)
[2017-09-15] MEDS: TYLENOL 325 MG PO PRN (21:11)
--- NOTE | 2017-09-15 23:00 | XRAY ---
Indication: Epigastric gastric pain 6-8 weeks. Vomiting and diarrhea. Multiple contiguous axial images obtained through the abdomen and pelvis without contrast as ordered. Comparison: March 13, 2015. Lung bases again demonstrates bibasilar dependent atelectasis/scarring and scattered calcified granulomas. Heart is not enlarged. New small hiatal hernia. Noncontrasted stomach and bowel loops appear nonobstructed. Minimal colonic diverticulosis. Previous reported appendectomy, cholecystectomy, and hysterectomy. There remains chunky calcifications in the gallbladder fossa. No abnormal biliary distention. Spleen is enlarged today measuring 13 cm in greatest axial dimension again with scattered calcified granulomas. Remaining liver, pancreas, adrenal glands, kidneys, ureters, and bladder appear unremarkable for noncontrast exam. It remains scattered aortoiliac calcifications without AAA. Osseous structures intact again with remote T12 endplate fracture, degenerative changes throughout the spine, and old right inferior pubic bone fracture. Impression: 1. No acute intra-abdominal/pelvic abnormality is on this noncontrast exam. 2. Incidental small hiatal hernia, chunky calcifications in the gallbladder fossa, splenomegaly, colonic diverticulosis, and evidence for old granulomatous disease. Comment: Preliminary interpretation was made by [facility]. No discrepancy. CTDI 16.64
[2017-09-16] MEDS: Sodium Chloride 0.9% 1000 ML 1,000 ML IV SCH ×4 (02:34→20:17)
[2017-09-16] MEDS ORDERED: Dopamine 400 MG/D5W 250ML PREMIX 250 ML IV ONE (04:11)
[2017-09-16] MEDS: Dopamine 400 MG/D5W 250ML PREMIX 250 ML IV PRN (04:11)
[2017-09-16] MEDS: TYLENOL 325 MG PO PRN ×3 (04:23→19:47)
[2017-09-16 06:21] LABS: Lymphocytes % 6.3 % (24.0-44.0); Mean Cell Volume 87.2 fl (78-100); Mean Platelet Volume 11.7 fl (6-9.5); Monocytes % 10.7 % (0.0-12.0); Platelet Count 140 K/mm3 (150-450); Red Cell Distribution Width 13.5 % (11.5-14.0); White Blood Count 9.5 K/mm3 (4.0-10.5)
[2017-09-16 06:34] LABS: Mean Corpuscular Hemoglobin 29.4 pg (26-32)
[2017-09-16 07:00] LABS: ALBUMIN 2.9 g/dL (3.4-5.0); ALKALINE PHOSPHATASE 76 U/L (46-116); ANION GAP 13.2 MEQ/L (5-15); BLOOD UREA NITROGEN 26 mg/dL (9-20); CHLORIDE 103 mEq/L (98-107); Carbon Dioxide 23.2 mEq/L (21-32); Glucose 150 MG/DL (70-110); Potassium 3.3 mEq/L (3.5-5.1); SGOT/AST 16 U/L (15-37); SGPT/ALT 14 U/L (12-78); SODIUM 136 mEq/L (136-145); Total Protein 6.5 gm/dL (6.4-8.2)
[2017-09-16] MEDS ORDERED: ROCEPHIN 1 Gm-D5w 50 ml Bag** 1 G/50 ML IVPB IV SCH (10:00)
[2017-09-16] MEDS: Nicoderm CQ 21 MG TOP SCH (17:19)
[2017-09-17] MEDS: Sodium Chloride 0.9% 1000 ML 1,000 ML IV SCH ×3 (03:01→18:44)
[2017-09-17] MEDS: TYLENOL 325 MG PO PRN ×3 (03:13→23:56)
[2017-09-17] MEDS ORDERED: PHARMACY DOSING REQUEST MC ONE (09:22)
[2017-09-17] MEDS ORDERED: ROCEPHIN 1 Gm-D5w 50 ml Bag** 1 G/50 ML IVPB IV SCH (10:00)
[2017-09-17] MEDS: MERREM 500MG 500 MG in Sodium Chloride 100ML MINI-BAG PLUS 100 ML IV SCH ×2 (10:05→20:54)
[2017-09-17] MEDS: Nicoderm CQ 21 MG TOP SCH (17:40)
[2017-09-18] MEDS: Zofran 4 MG/2 ML VIAL IV PRN ×3 (01:52→18:51)
[2017-09-18] MEDS: Sodium Chloride 0.9% 1000 ML 1,000 ML IV SCH ×2 (01:55→13:09)
[2017-09-18] MEDS: TYLENOL 325 MG PO PRN (06:00)
[2017-09-18 06:21] LABS: BASOPHIL % 0.2 % (0.0-0.4); Eosinophil % 0.6 % (0.00-5.0); Granulocytes % 77.3 % (36.0-66.0); Lymphocytes % 14.4 % (24.0-44.0); Mean Cell Volume 89.4 fl (78-100); Mean Corpuscular Hemoglobin 29.4 pg (26-32); Mean Platelet Volume 10.8 fl (6-9.5); Monocytes % 7.5 % (0.0-12.0); Platelet Count 135 K/mm3 (150-450); Red Cell Distribution Width 13.8 % (11.5-14.0); White Blood Count 5.1 K/mm3 (4.0-10.5)
[2017-09-18] MEDS: MERREM 500MG 500 MG in Sodium Chloride 100ML MINI-BAG PLUS 100 ML IV SCH ×3 (06:33→20:02)
[2017-09-18 06:46] LABS: ALBUMIN 2.7 g/dL (3.4-5.0); ALKALINE PHOSPHATASE 68 U/L (46-116); ANION GAP 16.3 MEQ/L (5-15); BLOOD UREA NITROGEN 10 mg/dL (9-20); CHLORIDE 111 mEq/L (98-107); Carbon Dioxide 22.3 mEq/L (21-32); Glucose 130 MG/DL (70-110); SGOT/AST 16 U/L (15-37); SGPT/ALT 7 U/L (12-78); SODIUM 147 mEq/L (136-145); Total Protein 5.9 gm/dL (6.4-8.2)
[2017-09-18 06:57] LABS: Potassium 2.7 mEq/L (3.5-5.1)
[2017-09-18] MEDS: POTASSIUM CHLORIDE 20 mEq IN WATER 100ML 20 MEQ/100 ML BAG IV SCH ×4 (08:09→20:01)
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
[2017-09-18] MEDS ORDERED: Catapres 0.1 MG PO ONE (13:00)
--- NOTE | 2017-09-18 13:03 | PROG NOTE ---
DATE: 09/16/2017 Chart is reviewed and events noted. A the time of this evaluation the patient is alert, awake, complains of diarrhea, denies abdominal pain, nausea or vomiting. She has been off her dopamine since peer counselor. Appears comfortable. PHYSICAL EXAMINATION: VITAL SIGNS: Blood pressure 115/75, heart rate 78, respiratory rate 16, temperature 98.4F. Oxygen saturation 96%. HEENT: Pallor is present. No icterus is noted. NECK: No JVD is present. CVS: S1, S2 present. RESPIRATORY: Breath sounds are bilaterally diminished and clear to auscultation. ABDOMEN: Soft, nontender. NEURO: She is alert, oriented x3. EXTREMITIES: No edema on bilateral lower extremities. LABORATORY DATA AND TESTS: Labs from today showed CBC with white blood cell of 9.5, hemoglobin 11.5, hematocrit 34, PLT 140,000. BMP showed potassium of 3.3, BUN 26, creatinine 0.8, glucose 150. Liver function tests are unremarkable. Urine culture shows gram negative, ID and sensitivity pending. Blood cultures are pending. CT scan abdomen and pelvis showed no acute intra-abdominal or pelvic abnormality, incidental small hiatal hernia, chunky calcifications in gallbladder fossa, splenomegaly, diverticulosis and evidence of old granulomatous disease. Medications were reviewed. ASSESSMENT: A 61 year old woman with impression: 1) Acute gastroenteritis. 2) Dehydration. 3) Anemia. 4) Renal insufficiency, resolving. 5) Hypokalemia. 6) History of chronic pain. 7) Hypotension, resolved. PLAN: As noted earlier the patient remains off dopamine. Her blood pressure is stable. Will continue to monitor. Replace potassium. Will obtain Clostridium difficile, transfer out of ICU. The plan was discussed with the patient. She seemed to be in understanding and agreement. Discussed with patient's nurse.
--- NOTE | 2017-09-18 14:13 | PROG NOTE ---
DATE: 09/17/2017 Chart is reviewed and events noted. At the time of this evaluation the patient is alert, awake, comfortable, complains of occasional dizziness when she gets up. Denies abdominal pain, nausea, vomiting. She states her diarrhea is better, appears comfortable. PHYSICAL EXAMINATION: VITAL SIGNS: Blood pressure 137/65, heart rate 66, respiratory rate 18, temperature 98.5F, temperature max 101.3F. Oxygen saturation 95% on room air. HEENT: Pallor is present. NECK: No JVD is present. CVS: S1, S2 present. RESPIRATORY: Breath sounds are bilaterally diminished and clear to auscultation. ABDOMEN: Soft, nontender. NEURO: She is alert, awake, answers simple questions. EXTREMITIES: No edema on bilateral lower extremities. LABORATORY DATA AND TESTS: There were no new labs today. Urine cultures from 09/15/2017 grew Escherichia coli/ESBL. Blood cultures from 09/15/2017 have remained negative x2. Blood cultures from 09/16/2017 are pending. Medications were reviewed. ASSESSMENT: A 61 year old woman with impression: 1) Escherichia coli urinary tract infection. 2) Dehydration, clinically improved. 3) Anxiety. 4) Anemia. PLAN: Continue IV fluids, continue to follow CBC and electrolytes, will obtain orthostatic blood pressure. The patient's antibiotics were changed based on her urine culture report. Further work up of diarrhea if symptoms recur. The plan was discussed with the patient. She seems to be in understanding and agreement. Discussed with patient's nurse, Misa.
[2017-09-18] MEDS: Zestril 20 MG*** 20 MG, hydroDIURIL 25 MG*** 25 MG PO SCH ×2 (17:02)
[2017-09-18] MEDS: Flagyl 500 MG PO SCH ×3 (17:16→20:02)
[2017-09-18] MEDS: Nicoderm CQ 21 MG TOP SCH (18:14)
[2017-09-18] MEDS ORDERED: VASOTEC I.V. 2.5 MG IV ONE (20:51)
[2017-09-18] MEDS ORDERED: VASOTEC I.V. 2.5 MG IV PRN (20:54)
[2017-09-18] MEDS ORDERED: VASOTEC I.V. 2.5 MG IV SCH (21:00)
[2017-09-18] MEDS: DUONEB 0.5-3 MG/3 ml Neb IH PRN (23:20)
[2017-09-19] MEDS: DUONEB 0.5-3 MG/3 ml Neb IH PRN (03:24)
[2017-09-19] MEDS: MERREM 500MG 500 MG in Sodium Chloride 100ML MINI-BAG PLUS 100 ML IV SCH ×3 (05:48→21:39)
[2017-09-19] MEDS: TYLENOL 325 MG PO PRN ×2 (05:48→21:38)
[2017-09-19] MEDS ORDERED: VASOTEC I.V. 2.5 MG IV PRN (06:30)
[2017-09-19] MEDS: Flagyl 500 MG PO SCH ×3 (08:25→21:38)
[2017-09-19] MEDS: Zestril 20 MG*** 20 MG, hydroDIURIL 25 MG*** 25 MG PO SCH ×2 (08:25)
[2017-09-19] MEDS: POTASSIUM CHLORIDE 20 mEq IN WATER 100ML 20 MEQ/100 ML BAG IV SCH ×2 (08:26→11:58)
[2017-09-19] MEDS: Sodium Chloride 0.9% 1000 ML 1,000 ML IV SCH (13:07)
[2017-09-19] MEDS ORDERED: Magnesium Sulfate 1 GM/2 ML VIAL IV ONE (14:00)
[2017-09-19] MEDS ORDERED: Magnesium 1 Gm / 100 Ml D5W*** 100 ML IV ONE (14:24)
--- NOTE | 2017-09-19 14:33 | XRAY ---
Indication: Confusion. Multiple contiguous axial images obtained through the head without contrast. Comparison: January 31, 2017. Images through the base of the brain slightly degraded by motion artifact. Again age-appropriate global atrophy and mild/moderate periventricular degenerative micro-ischemia bilaterally. Also stable remote lacunar infarcts of the caudate head and internal/external capsules bilaterally. No acute intracranial hemorrhage, abnormal extra-axial fluid collection, or mass effect. Fourth ventricle is midline without hydrocephalus. Bony calvarium intact. Visualized paranasal sinuses and mastoid air cells are clear. Impression: Stable nonacute senile brain with again bilateral remote lacunar infarcts. No new/acute intracranial abnormalities. CT DI 69.79
--- NOTE | 2017-09-19 14:50 | PROG NOTE ---
DATE: 09/18/2017 Chart is reviewed and events noted. At the time of this evaluation earlier today the patient complained of persistent diarrhea, complains generalized abdominal discomfort, complains of not feeling well. Also she was noted to have elevated blood pressure reading. IV fluids were discontinued and was restarted on her antihypertensive medications. Appeared comfortable. PHYSICAL EXAMINATION: VITAL SIGNS: Blood pressure 159/78, heart rate 84, respiratory rate 20, temperature 97.9F. Oxygen saturation 95% on room air. HEENT: Pallor is present. NECK: No JVD is present. CVS: S1, S2 present. RESPIRATORY: Breath sounds are bilaterally diminished and clear to auscultation. ABDOMEN: Soft, minimal generalized tenderness is present. NEURO: She is alert, oriented x3. EXTREMITIES: No edema on bilateral lower extremities. LABORATORY DATA AND TESTS: Labs from today showed CBC with white blood cell of 5.1, hemoglobin 10, hematocrit 30.4, PLT 135,000. CMP was noted. Medications were reviewed. ASSESSMENT: A 61 year old woman with impression: 1) Escherichia coli urinary tract infection. 2) Dehydration, clinically resolved. 3) Hypertension. 4) Diarrhea. 5) Anxiety. 6) Anemia. 7) Hypokalemia. PLAN: Potassium was replaced. As noted earlier the patient was restarted on antihypertensive medication, will continue to monitor hemodynamic status. Stools for Clostridium difficile have been requested. Continue broad spectrum IV antibiotics. The plan was discussed with the patient. She seems to be in understanding and agreement. Discussed with patient's nurse, Briana.
[2017-09-19] MEDS: Catapres 0.1 MG PO SCH ×2 (15:26→21:39)
[2017-09-19] MEDS: Klonopin 0.5 MG PO PRN ×2 (15:26→21:39)
[2017-09-19] MEDS: Nicoderm CQ 21 MG TOP SCH (17:36)
[2017-09-19] MEDS: ZOLOFT 50 MG TABLET PO SCH (21:39)
[2017-09-19] MEDS: Aricept 10 MG PO SCH (21:39)
[2017-09-20] MEDS: MERREM 500MG 500 MG in Sodium Chloride 100ML MINI-BAG PLUS 100 ML IV SCH ×3 (05:56→21:38)
--- NOTE | 2017-09-20 08:55 | PROG NOTE ---
DATE: 09/19/2017 Chart is reviewed and events noted. At the time of this evaluation the patient is alert, awake, complains of diarrhea. As per nursing staff she is not having diarrhea. Also per nursing staff the patient has been acting confused, urinating on floor. The patient denies any pain. She states she feels weak, appears comfortable. The patient was noted to have elevated blood pressure reading and was restarted on antihypertensive medication. PHYSICAL EXAMINATION: VITAL SIGNS: Blood pressure 138/74, heart rate 89, respiratory rate 18, temperature 99.8F. Oxygen saturation 90% on room air. HEENT: Pallor is present. No icterus is noted. NECK: No JVD is present. CVS: S1, S2 present. RESPIRATORY: Breath sounds are bilaterally diminished and clear to auscultation. ABDOMEN: Soft, nontender. NEURO: She is alert, awake, mildly confused, answered simple questions. EXTREMITIES: No edema on bilateral lower extremities. LABORATORY DATA AND TESTS: Labs from today show potassium of 2.9, magnesium 1.4. Blood cultures from 09/16/2017 continue to remain negative. Stool Clostridium difficile was reported to be positive. Medications were reviewed. ASSESSMENT: A 61 year old woman with impression: 1) ESCHERICHIA COLI URINARY TRACT INFECTION (ESBL). 2) HYPERTENSION. 3) CLOSTRIDIUM DIFFICILE COLITIS. 4) ANXIETY. 5) ANEMIA. 6) CONFUSION. 7) QUESTIONABLE DEMENTIA (FROM MEDICATION HISTORY). 8) GENERALIZED WEAKNESS. PLAN: Continue broad spectrum IV antibiotics. Flagyl was added. Antihypertensive medications were added. Will continue to monitor hemodynamic status. Continue to monitor neurological status. Will obtain baseline CT head. The patient lives with her POA and reportedly he has not been contacted per case management. It was discussed with the patient regarding possible consideration for rehab stay and the patient is agreeable with that. The plan was discussed with the patient. Discussed with caseworker protective services, Nathaly.
[2017-09-20] MEDS: Flagyl 500 MG PO SCH ×3 (09:22→21:38)
[2017-09-20] MEDS: ZESTRIL PO SCH ×2 (09:22)
[2017-09-20] MEDS: HYDRODIURIL PO SCH ×2 (09:22)
[2017-09-20] MEDS: Catapres 0.1 MG PO SCH ×3 (09:23→21:38)
[2017-09-20 12:52] LABS: Mean Cell Volume 90.2 fl (78-100); Mean Platelet Volume 10.1 fl (6-9.5); Platelet Count 178 K/mm3 (150-450); Red Blood Count 3.17 M/mm3 (4.1-5.4); Red Cell Distribution Width 14.2 % (11.5-14.0)
[2017-09-20 12:56] LABS: ANION GAP 16.4 MEQ/L (5-15); BLOOD UREA NITROGEN 8 mg/dL (9-20); CHLORIDE 107 mEq/L (98-107); Glucose 103 MG/DL (70-110); SODIUM 143 mEq/L (136-145)
[2017-09-20] MEDS ORDERED: Magnesium 1 Gm / 100 Ml D5W*** 100 ML IV ONE (13:00)
[2017-09-20 13:05] LABS: Potassium 2.8 mEq/L (3.5-5.1)
[2017-09-20] MEDS: Klonopin 0.5 MG PO PRN (13:30)
[2017-09-20] MEDS ORDERED: Klor Con 10 MEQ PO ONE (13:30)
[2017-09-20] MEDS ORDERED: POTASSIUM CHLORIDE 20 mEq IN WATER 100ML 20 MEQ/100 ML BAG IV SCH (13:30)
[2017-09-20] MEDS: ENOXAPARIN SODIUM SQ SCH (13:32)
[2017-09-20] MEDS ORDERED: Potassium Chloride 40 MEQ/20 ML VIAL 40 MEQ, Magnesium Sulfate 1 GM/2 ML VIAL*** 1 GM i... IV SCH ×3 (14:00)
[2017-09-20] MEDS: Nicoderm CQ 21 MG TOP SCH (17:27)
[2017-09-20] MEDS: Aricept 10 MG PO SCH (21:38)
[2017-09-20] MEDS: ZOLOFT 50 MG TABLET PO SCH (21:38)
[2017-09-21] MEDS: Sodium Chloride 0.9% 1000 ML 1,000 ML IV SCH (04:25)
[2017-09-21] MEDS: MERREM 500MG 500 MG in Sodium Chloride 100ML MINI-BAG PLUS 100 ML IV SCH ×2 (06:16→14:11)
--- NOTE | 2017-09-21 08:18 | PROG NOTE ---
DATE: 09/20/2017 Chart is reviewed and events noted. At the time of this evaluation earlier today, the patient states she was still having diarrhea, complains of feeling fatigued. She stated that now she has changed her mind and wants to go home. She appeared comfortable. PHYSICAL EXAMINATION: VITAL SIGNS: Blood pressure 125/69, heart rate 90, respiratory rate 18, temperature 97.6F. HEENT: Pallor is present. No icterus is noted. NECK: No JVD is present. CVS: S1, S2 present. RESPIRATORY: Breath sounds are bilaterally diminished and clear to auscultation. ABDOMEN: Soft, nontender. NEURO: She is alert, awake, answers simple questions. EXTREMITIES: No edema on bilateral lower extremities. LABORATORY DATA AND TESTS: Labs from today were noted. Medications were reviewed. ASSESSMENT: A 61 year old woman with impression: 1) Escherichia coli urinary tract infection (ESBL). 2) Clostridium difficile colitis. 3) Hypokalemia. 4) Hypertension. 5) Anxiety. 6) History of confusion. 7) Dementia (per medication history). 8) History of chronic pain syndrome. 9) Generalized weakness. PLAN: Repeat labs including potassium was requested and the patient continues to be hypokalemic. Replacement potassium was ordered. Magnesium was replaced. I discussed with the patient again regarding considering rehab. However the patient is insistent on going home. She states that she would have 24/7 supervision available. Although her level two was cleared none of the area nursing homes refused to accept the patient per case management. The patient's POA is being contacted per case management. Likely discharge home tomorrow if improves. The plan was discussed with the patient. She seems to be in agreement. Discussed with patient's nurse, Hong, and sample case porter, Nathaly Khan.
[2017-09-21] MEDS: Klonopin 0.5 MG PO PRN ×2 (08:51→14:11)
[2017-09-21] MEDS: Flagyl 500 MG PO SCH ×2 (08:51→14:11)
[2017-09-21] MEDS: ZESTRIL PO SCH ×2 (08:51)
[2017-09-21] MEDS: HYDRODIURIL PO SCH ×2 (08:51)
[2017-09-21] MEDS: ENOXAPARIN SODIUM SQ SCH (08:52)
[2017-09-21] MEDS: Catapres 0.1 MG PO SCH ×2 (08:52→14:11)
[2017-09-21 12:49] VITALS: O2SAT 93
[2017-09-21] MEDS ORDERED: MAG-OX 400 PO ONE (15:00)
[2017-09-21 15:15] VITALS: BP 133/76; PULSE 50
[2017-09-21 15:44] LABS: Bilirubin NEGATIVE (NEGATIVE); Blood NEGATIVE Ery/ul (0-5); COMPLETE URINE MICROSCOPIC? YES; Collection Type CCMS; Glucose NEGATIVE (NEGATIVE); Leukocyte Esterase TRACE (NEGATIVE)
[2017-09-21 15:45] LABS: ADD URINE CULTURE? YES (NO); Bacteria FEW /HPF (NEGATIVE); Epithelial Cells MODERATE /HPF (FEW)
--- NOTE | 2017-09-22 11:18 | DS ---
DISCHARGE DIAGNOSES: 1) ESCHERICHIA COLI URINARY TRACT INFECTION (ESBL) EXTENDED-SPECTRUM BETA-LACTAMASE 2) CLOSTRIDIUM DIFFICILE COLITIS. 3) DEHYDRATION, CLINICALLY RESOLVED. 4) ACUTE GASTROENTERITIS, CLINICALLY RESOLVED. 5) HYPERTENSION. 6) ABDOMINAL PAIN, RESOLVED. 7) CHRONIC PAIN SYNDROME 8) DEMENTIA, PER MEDICATION HISTORY. 9) RENAL INSUFFICIENCY, RESOLVED. HOSPITAL COURSE: Jaye Gray is a 61 year-old woman with past medical history of hypertension, chronic pain syndrome, anxiety and prior history of dementia per medication history. She regularly follows with her primary care physician, Dr. Qiu. She was admitted through the emergency room on 09/15/2017 with symptoms of nausea, several episodes of vomiting, diarrhea, fever, generalized weakness. Please refer to history and physical for details. The patient was admitted to my service as I was on service call that evening. Upon admission she was noted to be hypotension, febrile. She was treated for possible sepsis. After initial treatment she was treated with normal saline, broad spectrum IV antibiotics and eventually was placed on dopamine drip and was admitted to ICU. Admission labs were also notable CMP with potassium of 3. CBC was notable for white blood cell 12.3. CMP also revealed BUN 43, creatinine 1.44. Lactic acid 0.5. Liver function test within normal limits. Venous blood gas showed pH of 7.48. UA showed 30 protein, moderate leukocyte esterase, packed bacteria. EKG showed sinus rhythm at 70 beats/minute. Chest x-ray showed stable nonacute chest with chronic features. During her course in ICU she was continued on IV fluids, dopamine. Eventually her blood pressure had improved and her dopamine was discontinued. She underwent CT scan of abdomen and pelvis on 09/15/2017 and that showed no acute intra-abdominal or pelvic abnormality, incidental small hiatal hernia, chunky calcification in gallbladder fossa, splenomegaly, chronic diverticulosis and evidence of old granulomatous disease. Subsequent labs showed normal white blood cell count, mild drop in hemoglobin/hematocrit. Also subsequently she was noted to have further hyperkalemia for which she was treated accordingly. Blood cultures from 09/15/2017 had revealed negative x2. Urine cultures from 09/15/2017 grew Escherichia coli (ESBL). Her antibiotics were changed accordingly. She was placed on Merrem. During her further course she had developed some fever. A repeat blood cultures from 09/16/2017 remained negative. Also she had developed diarrhea and Clostridium difficile, was reported to be positive for which she was placed on Flagyl. Subsequently she was transferred out of ICU. Her further course was notable for hypertension. As the patient is a poor historian, medications were verified with the pharmacy. She was treated with addition of hypertension medication with improvement of her hypertension. Subsequent course she had episodes of confusion. CT scan of head on 09/19/2017 showed stable nonacute senile brain with bilateral remote lacunar infarcts, no new or acute intracranial abnormalities. Further course was essentially more or less unremarkable. She improved clinically. Her symptoms of abdominal pain, nausea and vomiting had resolved. Her diarrhea had improved. She was able to tolerate some diet. She did have some generalized weakness. Initially the patient had agreed for group home placement and that process was started with case management. However during my visit on 09/19/2017, the patient stated that she had again changed her mind and did not wish to go to group home and would rather just go home when discharged. The patient stated that she would have adult family member with her 24/7 to help her with her needs. This was discussed again with case management and they verified the same. At the time of my evaluation earlier this afternoon the patient was alert, awake and comfortable. She stated she overall felt better. She denied any abdominal pain, nausea or vomiting, or any other new complaints. She was tolerating diet. She said her diarrhea had improved. She had ambulated some and was wishing to go home. Appeared comfortable. PHYSICAL EXAMINATION: VITAL SIGNS: Blood pressure 133/76, heart rate 54, respiratory rate 16, temperature 97.3F. Oxygen saturation 92% on room air. HEENT: Pallor is present. No icterus is noted. NECK: No JVD is present. CVS: S1, S2 present. RESPIRATORY: Breath sounds are bilaterally diminished and clear to auscultation. ABDOMEN: Soft, nontender. NEURO: She was alert, awake, answers simple questions. EXTREMITIES: No edema on bilateral lower extremities. LABORATORY DATA AND TESTS: Labs from today were notable for magnesium 1.7. Repeat potassium after replacement last night's potassium was 3.3 (after replacement). Medications were reviewed. ASSESSMENT: As outlined in discharge diagnosis. A 61 year-old woman with past medical history of hypertension, dementia (per medication list), chronic pain syndrome and anxiety was admitted with nausea, vomiting and abdominal pain. She was diagnosed to have urinary tract infection and eventually Clostridium difficile colitis. Initially she was hypotensive and that resolved after treatment with IV fluids and dopamine. Also she was treated with broad spectrum IV antibiotics adjusted based on her cultures. She has improved clinically, remained hemodynamically stable. She said her symptoms are nearly resolved. She is able to tolerate diet otherwise she is feeling well. Although she is somewhat deconditioned otherwise she is feeling well. She is insistent on going home. She is being discharged home in stable condition. Please refer to discharge medication list from 09/21/2017 for review of medications on discharge. I have advised the patient to start discharge medications as directed and obtain CBC and CMP in one week which will be followed by her primary care physician. I have advised her to follow up with Dr. Qiu's office in one week. Compliance with diet and medications were stressed. Complete cessation of smoking, alcohol intake, illicit drug use if any was stressed. I have advised her to return to the Emergency [facility] if any new signs and symptoms or reappearance of previous signs and symptoms are noted. The patient's clinical condition, work-up results and plan of management including plan after discharge were discussed with her. She seems to be in understanding and agreement. Discussed with patient's nurse, Zoila, and case finishing machine adjuster, Nathaly. Please refer to the patient's chart, labs, diagnostic work up results and consult notes for details.
== END 2017-09-21 15:25 | disposition home or self-care (01) | DRG 690 ==
LOC: ED 12:05 → OBSVTOIN 16:00 → ICU 16:00 → INTOOBSV 16:00 → MED SURG 09-16 15:26
PROVIDERS: ADMIT General Practice; ATTEND General Practice
DX: N39.0 Urinary tract infection, site not specified (principal); A04.72 Enterocolitis due to Clostridium difficile, not specified as recurrent; B96.29 Other Escherichia coli [E. coli] as the cause of diseases classified elsewhere; Z16.12 Extended spectrum beta lactamase (ESBL) resistance; E86.0 Dehydration; K52.9 Noninfective gastroenteritis and colitis, unspecified; I10 Essential (primary) hypertension; R10.9 Unspecified abdominal pain; G89.4 Chronic pain syndrome; F45.42 Pain disorder with related psychological factors; F03.90 Unspecified dementia, unspecified severity, without behavioral disturbance, psychotic disturbance, mood disturbance, and anxiety; N28.9 Disorder of kidney and ureter, unspecified; F41.9 Anxiety disorder, unspecified; J44.9 Chronic obstructive pulmonary disease, unspecified; K21.9 Gastro-esophageal reflux disease without esophagitis; Z85.43 Personal history of malignant neoplasm of ovary; Z72.0 Tobacco use; D64.9 Anemia, unspecified; E87.6 Hypokalemia; I95.9 Hypotension, unspecified; R53.1 Weakness
CPT/HCPCS: 36000; 36415; 70450; 71010; 74176; 80048; 80053; 81000; 82805; 83605; 83735; 84132; 85025; 85027; 85610; 85730; 87040; 87077; 87086; 87186; 87493; 87631; 93005; 93041; 94640; 94760; 96360; 96361; 96365; 99285; J0696; J1265; J1650; J2405; J3475; J3480; P9612; A9270-GY

== ENCOUNTER 2017-12-01 10:23 | Emergency (ER) | payer MEDICAID ==
[2017-12-01] MEDS ORDERED: BABY ASPIRIN 81 MG CHEW PO ONE (10:37)
[2017-12-01] MEDS ORDERED: DUONEB 0.5-3 MG/3 ml Neb IH ONE ×2 (10:38→10:49)
[2017-12-01] MEDS ORDERED: TYLENOL 325 MG PO ONE (10:39)
[2017-12-01 10:50] LABS: BASOPHIL % 0.1 % (0.0-0.4); Basophil (Absolute #) 0.01 (0-0.4); Eosinophil % 1.1 % (0.00-5.0); Eosinophil (Absolute #) 0.08 (0-0.5); Granulocyte Absolute (ANC) 4.85 (1.4-6.9); Granulocytes % 67.3 % (36.0-66.0); Hemoglobin 12.7 gm/dl (12.0-16.0); Lymphocyte (Absolute #) 1.75 (1.0-4.6); Lymphocytes % 24.3 % (24.0-44.0); Mean Cell Volume 87.6 fl (78-100); Mean Corpuscular Hemoglobin 28.5 pg (26-32); Mean Corpuscular Hgb Concent. 32.6 g/dl (32-36); Mean Platelet Volume 10.8 fl (6-9.5); Monocyte (Absolute #) 0.52 (0.0-1.3); Monocytes % 7.2 % (0.0-12.0); Platelet Count 153 K/mm3 (150-450); Red Blood Count 4.45 M/mm3 (4.1-5.4); Red Cell Distribution Width 15.6 % (11.5-14.0); White Blood Count 7.2 K/mm3 (4.0-10.5)
[2017-12-01] MEDS ORDERED: TYLENOL 325 MG ONE (10:51)
[2017-12-01] MEDS ORDERED: BABY ASPIRIN 81 MG CHEW ONE (10:51)
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
--- NOTE | 2017-12-01 11:23 | XRAY ---
Indication: Chest pain 10-12 days. COPD. Comparison: September 15, 2017. PA/lateral chest unchanged again hyperinflated and clear with scattered calcified granulomas. Heart and mediastinal structures within normal limits. Bony thorax intact again with osteopenia, degenerative changes, old left humeral fracture, and old T12 compression fracture. Impression: Stable nonacute hyperinflated chest with chronic features.
[2017-12-01 11:36] LABS: ALBUMIN 3.8 g/dL (3.4-5.0); ALKALINE PHOSPHATASE 94 U/L (46-116); ANION GAP 12.5 MEQ/L (5-15); BLOOD UREA NITROGEN 10 mg/dL (9-20); CHLORIDE 105 mEq/L (98-107); Calcium 9.2 mg/dL (8.5-10.1); Carbon Dioxide 26.6 mEq/L (21-32); Creatinine 1 0.61 mg/dl (0.55-1.30); EST GLOMERULAR FILTRATION RATE > 60 ML/MIN; Glucose 94 MG/DL (70-110); SGOT/AST 32 U/L (15-37); SGPT/ALT 27 U/L (12-78); SODIUM 140 mEq/L (136-145); Total Protein 6.4 gm/dL (6.4-8.2)
[2017-12-01 11:44] VITALS: PULSE 64
[2017-12-01 12:53] VITALS: O2SAT 97
[2017-12-01 13:19] VITALS: BP 122/78
== END 2017-12-01 13:20 | disposition home or self-care (01) ==
LOC: ED 10:23
DX: J20.9 Acute bronchitis, unspecified (principal); R07.89 Other chest pain
CPT/HCPCS: 36000; 36415; 71046; 80053; 80307; 80346; 81002; 82570; 83605; 83986; 84484; 85025; 85379; 93005; 93041; 94640; 99284; A9270-GY; G0480

== ENCOUNTER 2017-12-06 14:31 | Observation (INO) | payer MEDICAID ==
[2017-12-06 15:57] LABS: Hematocrit 39.7 % (35-47); Mean Cell Volume 90.4 fl (78-100); Mean Corpuscular Hemoglobin 29.6 pg (26-32); Mean Corpuscular Hgb Concent. 32.7 g/dl (32-36); Mean Platelet Volume 11.8 fl (6-9.5); Platelet Count 102 K/mm3 (150-450); Red Blood Count 4.39 M/mm3 (4.1-5.4); Red Cell Distribution Width 16.3 % (11.5-14.0); White Blood Count 5.6 K/mm3 (4.0-10.5)
[2017-12-06] MEDS ORDERED: Zestril 20 MG PO SCH (16:00)
[2017-12-06] MEDS: TORAdol 30 mg Injection IV PRN (16:02)
[2017-12-06] MEDS: Dextrose 5% -0.45 NaCl 1000 ML 1,000 ML IV SCH (16:02)
[2017-12-06] MEDS: ROCEPHIN 1 Gm-D5w 50 ml Bag** 1 G/50 ML IVPB IV SCH (16:02)
[2017-12-06 16:04] LABS: A-aADO2 24; ABG POTASSIUM 3.6 (3.5-5.1); ARTERIAL BLD GAS O2 SATURATION 98.1 % (95-100); ARTERIAL BLOOD GAS BASE EXCESS 5.9 (-2.0-2.0); ARTERIAL BLOOD GAS FIO2 21 %; ARTERIAL BLOOD GAS PCO2 39 mmHg (35-45); ARTERIAL BLOOD GAS PO2 77 mmHg (75-100); ARTERIAL BLOOD GAS pH 7.49 (7.35-7.45); HCO3- 29.7 (22-28); HGB O2 SAT 89.3 g/dF (94-100); Methhemoglobin 0.9 % (1.4-1.5); paO2 pAO1 0.76
[2017-12-06 16:06] LABS: ABG SITE RIGHT RADIAL; ALLEN TEST OK? YES; CARBOXYHEMOGLOBIN 8.1 % THgb (0.0-6.9)
[2017-12-06 16:28] LABS: INFLUENZA A NEGATIVE (NEGATIVE); INFLUENZA B NEGATIVE (NEGATIVE); RESPIRATORY SYNCTIAL VIRUS NEGATIVE (Negative)
[2017-12-06 16:30] LABS: ALBUMIN 3.7 g/dL (3.4-5.0); ALKALINE PHOSPHATASE 109 U/L (46-116); ANION GAP 11.1 MEQ/L (5-15); BLOOD UREA NITROGEN 11 mg/dL (9-20); CHLORIDE 103 mEq/L (98-107); Calcium 9.1 mg/dL (8.5-10.1); Carbon Dioxide 29.7 mEq/L (21-32); Creatinine 1 0.73 mg/dl (0.55-1.30); EST GLOMERULAR FILTRATION RATE > 60 ML/MIN; Glucose 98 MG/DL (70-110); NT PRO BNP 678 pg/ml (0-125); Potassium 3.6 mEq/L (3.5-5.1); SGOT/AST 19 U/L (15-37); SGPT/ALT 18 U/L (12-78); SODIUM 140 mEq/L (136-145); Total Protein 6.4 gm/dL (6.4-8.2)
[2017-12-06 16:33] LABS: TROPONIN < 0.017 ng/ml (0.000-0.056)
--- NOTE | 2017-12-06 16:57 | XRAY ---
Indication: COPD. Comparison: December 01, 2017. PA/lateral chest unchanged again hyperinflated and clear with incidental scattered calcified granulomas. Heart is not enlarged. No new/acute cardiopulmonary findings.
[2017-12-06] MEDS: hydroDIURIL 25 MG PO SCH (17:10)
[2017-12-06] MEDS: Zanaflex 4 MG PO SCH ×2 (17:10→22:30)
[2017-12-06] MEDS: Mobic 7.5 MG PO SCH (17:10)
[2017-12-06] MEDS: NEURONTIN 300 MG PO SCH ×2 (17:10→22:30)
[2017-12-06] MEDS: Catapres 0.1 MG PO SCH ×2 (17:10→22:30)
[2017-12-06] MEDS: solu-MEDROL 125 MG IV SCH ×2 (17:11→23:49)
[2017-12-06] MEDS: Protonix 40MG Tablet PO SCH (17:11)
[2017-12-06] MEDS ORDERED: BUMEX 1 MG IV ONE (18:00)
[2017-12-06] MEDS ORDERED: PROVENTIL COMMON CANISTER IH PRN (19:00)
[2017-12-06] MEDS ORDERED: NON-FORMULARY ITEM (Sertraline Hcl [Zoloft] 100 MG) PO SCH (22:00)
[2017-12-06] MEDS ORDERED: TIZANIDINE HCL 2 MG PO SCH (22:00)
[2017-12-06] MEDS: ECOTRIN 81 MG PO SCH (22:30)
[2017-12-06] MEDS: Aricept 10 MG PO SCH (22:30)
[2017-12-06] MEDS: ZOLOFT 50 MG TABLET PO SCH (22:31)
[2017-12-07] MEDS: solu-MEDROL 125 MG IV SCH ×4 (06:24→23:53)
[2017-12-07] MEDS: DUONEB 0.5-3 MG/3 ml Neb IH SCH ×4 (07:17→19:40)
[2017-12-07] MEDS: TORAdol 30 mg Injection IV PRN ×3 (08:38→20:33)
[2017-12-07] MEDS: Dextrose 5% -0.45 NaCl 1000 ML 1,000 ML IV SCH (08:38)
--- NOTE | 2017-12-07 09:12 | PCM.NOTE ---
Date and Time: 12/07/17905 Subjective Assessment: doing better, still some pain on deep breathing - Review of Systems Constitutional: No Fever, No Chills Eyes: No Symptoms Ears, Nose, & Throat: No Symptoms Respiratory: No Cough, No Short Of Breath Cardiac: No Chest Pain, No Edema, No Syncope Abdominal/Gastrointestinal: No Abdominal Pain, No Nausea, No Vomiting, No Diarrhea Genitourinary Symptoms: No Dysuria Musculoskeletal: No Back Pain, No Neck Pain Skin: No Rash Neurological: No Dizziness, No Focal Weakness, No Sensory Changes Psychological: No Symptoms Endocrine: No Symptoms Hematologic/Lymphatic: No Symptoms Immunological/Allergic: No Symptoms Objective Exam General Appearance: no apparent distress, alert Neurologic Exam: alert, oriented x 3, cooperative, normal mood/affect, nml cerebellar function, sensation nml, No motor deficits Skin Exam: normal color, warm, dry Eye Exam: PERRL, EOMI, eyes nml inspection Ears, Nose, Throat Exam: normal ENT inspection, pharynx normal, moist mucous membranes Neck Exam: normal inspection, non-tender, supple, full range of motion Respiratory Exam: normal breath sounds, lungs clear, No respiratory distress Cardiovascular Exam: regular rate/rhythm, normal heart sounds Gastrointestinal/Abdomen Exam: soft, No tenderness, No mass Extremity Exam: normal inspection, normal range of motion Back Exam: normal inspection, normal range of motion, No CVA tenderness, No vertebral tenderness Pelvic Exam: deferred Rectal Exam: deferred OBJECTIVE DATA Vital Signs: Vital Signs - 24 hr Temp Pulse Resp BP Pulse Ox 12/07/17 07:26 98.4 F 57 L 20 90/55 95 12/07/17 07:00 71 18 97 12/07/17 04:00 98.5 F 54 L 16 97/53 97 12/07/17 00:05 98.5 F 57 L 16 90/53 97 12/06/17 20:00 99.2 F 74 16 91/55 96 12/06/17 19:09 71 20 93 L 12/06/17 14:53 99.3 F 62 20 147/63 99 12/06/17 14:39 99.3 F 62 20 147/63 99 Pain Assessment - Last Documented Pain Intensity 7 Pain Scale Used 0-10 Pain Scale Intake and Output: Intake & Output 12/04/17 12/05/17 12/06/17 12/07/17 11:59 11:59 11:59 11:59 Intake Total 1984 Output Total 1250 Balance 734 Weight 59.4 kg Lab Results: Lab Results-Last 24 Hours 12/06/17 12/06/17 12/06/17 Range/Units 15:45 15:45 15:45 WBC 5.6 (4.0-10.5) K/mm3 RBC 4.39 (4.1-5.4) M/mm3 Hgb 13.0 (12.0-16.0) gm/dl Hct 39.7 (35-47) % MCV 90.4 (78-100) fl MCH 29.6 (26-32) pg MCHC 32.7 (32-36) g/dl RDW 16.3 H (11.5-14.0) % Plt Count 102 L (150-450) K/mm3 MPV 11.8 H (6-9.5) fl D-Dimer 563.60 H* (0-500) ng/mL Puncture Site pCO2 (35-45) mmHg pO2 (75-100) mmHg Base Excess (-2.0-2.0) O2 Saturation (94-100) g/dF ABG pH (7.35-7.45) ABG HCO3 (22-28) ABG O2 Sat (Measured) (95-100) % Isaac Test A-a Gradient a/A Ratio Hemoglobin Carboxyhemoglobin (0.0-6.9) % THgb Methemoglobin (1.4-1.5) % Temperature C POC O2 Flow Rate % Sodium 140 (136-145) mEq/L Potassium 3.6 (3.5-5.1) mEq/L Chloride 103 (98-107) mEq/L Carbon Dioxide 29.7 (21-32) mEq/L Anion Gap 11.1 (5-15) MEQ/L BUN 11 (9-20) mg/dL Creatinine 0.73 (0.55-1.30) mg/dl Estimated GFR > 60 ML/MIN Glucose 98 (70-110) MG/DL Calcium 9.1 (8.5-10.1) mg/dL Total Bilirubin 0.40 (0.2-1.0) mg/dL AST 19 (15-37) U/L ALT 18 (12-78) U/L Alkaline Phosphatase 109 (46-116) U/L Troponin I < 0.017 (0.000-0.056) ng/ml NT-Pro-B Natriuret Pep 678 H (0-125) pg/ml Serum Total Protein 6.4 (6.4-8.2) gm/dL Albumin 3.7 (3.4-5.0) g/dL Influenza Type A Ag (NEGATIVE) Influenza Type B Ag (NEGATIVE) RSV (PCR) (Negative) 12/06/17 12/06/17 Range/Units 15:45 15:55 WBC (4.0-10.5) K/mm3 RBC (4.1-5.4) M/mm3 Hgb (12.0-16.0) gm/dl Hct (35-47) % MCV (78-100) fl MCH (26-32) pg MCHC (32-36) g/dl RDW (11.5-14.0) % Plt Count (150-450) K/mm3 MPV (6-9.5) fl D-Dimer (0-500) ng/mL Puncture Site RIGHT RADIAL pCO2 39 (35-45) mmHg pO2 77 (75-100) mmHg Base Excess 5.9 H (-2.0-2.0) O2 Saturation 89.3 L (94-100) g/dF ABG pH 7.49 H (7.35-7.45) ABG HCO3 29.7 H* (22-28) ABG O2 Sat (Measured) 98.1 (95-100) % Isaac Test YES A-a Gradient 24 a/A Ratio 0.76 Hemoglobin 12.0 Carboxyhemoglobin 8.1 H* (0.0-6.9) % THgb Methemoglobin 0.9 L (1.4-1.5) % Temperature 37.0 C POC O2 Flow Rate 21 % Sodium (136-145) mEq/L Potassium 3.6 (3.5-5.1) mEq/L Chloride (98-107) mEq/L Carbon Dioxide (21-32) mEq/L Anion Gap (5-15) MEQ/L BUN (9-20) mg/dL Creatinine (0.55-1.30) mg/dl Estimated GFR ML/MIN Glucose (70-110) MG/DL Calcium (8.5-10.1) mg/dL Total Bilirubin (0.2-1.0) mg/dL AST (15-37) U/L ALT (12-78) U/L Alkaline Phosphatase (46-116) U/L Troponin I (0.000-0.056) ng/ml NT-Pro-B Natriuret Pep (0-125) pg/ml Serum Total Protein (6.4-8.2) gm/dL Albumin (3.4-5.0) g/dL Influenza Type A Ag NEGATIVE (NEGATIVE) Influenza Type B Ag NEGATIVE (NEGATIVE) RSV (PCR) NEGATIVE (Negative) Radiology Exams: Radiology Procedures Category Date Time Status CHEST 2 VIEWS (PA AND LAT) Routine Exams 12/06/17 15:40 Completed CHEST WITH CONTRAST [CT] Routine Exams 12/06/17 17:30 Taken Assessment/Plan (1) Acute exacerbation of chronic bronchitis Current Visit: Yes Status: Acute Assessment & Plan: Chief Complaint Diagnosis COPD EXACERBATION Allergies Allergy/AdvReac Type Severity Reaction Status Date / Time strawberry [Sunset] Allergy Mild Hives Verified 09/15/17 12:24 Sulfa (Sulfonamide Allergy Mild "I DON'T Verified 09/15/17 12:24 Antibiotics) REMEMBER" [Sulfa(Sulfonamide Antibiotics)] Vital Signs (Last 24 hours) Temp Pulse Resp BP Pulse Ox 12/07/17 07:26 98.4 F 57 L 20 90/55 95 12/07/17 07:00 71 18 97 12/07/17 04:00 98.5 F 54 L 16 97/53 97 12/07/17 00:05 98.5 F 57 L 16 90/53 97 12/06/17 20:00 99.2 F 74 16 91/55 96 12/06/17 19:09 71 20 93 L 12/06/17 14:53 99.3 F 62 20 147/63 99 12/06/17 14:39 99.3 F 62 20 147/63 99 Home Medications Medication Instructions Recorded Confirmed Last Taken Type Gabapentin 300 mg PO TID 12/06/17 12/06/17 Unknown History Lisinopril/Hydrochlorothiazide 1 each PO DAILY 12/06/17 12/06/17 1 Day Ago History [Zestoretic 20-25 Tablet] ~12/05/17 1 each Meloxicam [Mobic] 15 mg PO DAILY 12/06/17 12/06/17 Unknown History Omeprazole/Sodium Bicarbonate 1 each PO DAILY 12/06/17 12/06/17 Unknown History [Omeppi 40 mg-1,100 mg Capsule] Tizanidine HCl [Zanaflex] 2 mg PO TID 12/06/17 12/06/17 Unknown History Current Medications Generic Name Dose Route Start Last Admin Trade Name Freq PRN Reason Stop Dose Admin Albuterol Sulfate 2 puff 12/06/17 19:00 12/06/17 19:09 Proventil Common Canister IH 2 puff BID PRN PRN Administration Albuterol/Ipratropium 3 ml 12/07/17 07:00 12/07/17 07:17 Duoneb 0.5-3 Mg/3 Ml Neb IH 01/06/18 06:59 3 ml QIDRT DAMON Administration Aspirin 81 mg 12/06/17 22:00 12/06/17 22:30 Ecotrin 81 Mg PO 01/05/18 21:59 81 mg DAILY DAMON Administration Clonidine 0.1 mg 12/06/17 16:00 12/06/17 22:30 Catapres 0.1 Mg PO 01/05/18 15:59 0.1 mg TID DAMON Administration Donepezil HCl 10 mg 12/06/17 22:00 12/06/17 22:30 Aricept 10 Mg PO 01/05/18 21:59 10 mg HS DAMON Administration Gabapentin 300 mg 12/06/17 16:00 12/06/17 22:30 Neurontin 300 Mg PO 01/05/18 15:59 300 mg TID DAMON Administration Hydrochlorothiazide 25 mg 12/06/17 16:00 12/06/17 17:10 Hydrodiuril 25 Mg PO 01/05/18 15:59 25 mg DAILY DAMON Administration Dextrose/Sodium Chloride 1,000 mls @ 60 mls/hr 12/06/17 16:00 12/07/17 08:38 Dextrose 5% -0.45 Nacl 1000 Ml IV 01/05/18 15:59 100 mls/hr .[id number] DAMON Administration Ceftriaxone Sodium/Dextrose 1 g in 50 mls @ 100 mls/hr 12/06/17 16:00 16:02 Rocephin 1 Gm-D5w 50 Ml Bag IV 01/05/18 15:59 100 mls/hr DAILY DAMON Administration Influenza Virus Vaccine Quadrival 60 mcg 12/07/17 10:00 Flucelvax Quad [id number] Syr IM 12/07/17 10:01 .ONCE ONE Ketorolac Tromethamine 30 mg 12/06/17 15:54 12/07/17 08:38 Toradol 30 Mg Injection IV 12/11/17 15:53 30 mg Q6H PRN PRN Administration PAIN Lisinopril 20 mg 12/06/17 16:00 12/06/17 17:10 Zestril 20 Mg PO 01/05/18 15:59 20 mg DAILY DAMON Administration Meloxicam 15 mg 12/06/17 16:00 12/06/17 17:10 Mobic 7.5 Mg PO 01/05/18 15:59 15 mg DAILY DAMON Administration Methylprednisolone Sodium Succinate 60 mg 12/06/17 18:00 12/07/17 06:24 Solu-Medrol 125 Mg IV 01/05/18 17:59 60 mg Q6HT DAMON Administration Pantoprazole Sodium 40 mg 12/06/17 16:00 12/06/17 17:11 Protonix 40mg Tablet PO 01/05/18 15:59 40 mg DAILY DAMON Administration Sertraline HCl 100 mg 12/06/17 22:00 12/06/17 22:31 Zoloft 50 Mg Tablet PO 01/05/18 21:59 100 mg HS DAMON Administration Tizanidine HCl 2 mg 12/06/17 16:00 12/06/17 22:30 Zanaflex 4 Mg PO 01/05/18 15:59 2 mg TID DAMON Administration Discontinued Medications Generic Name Dose Route Start Last Admin Trade Name Freq PRN Reason Stop Dose Admin Bumetanide 1 mg 12/06/17 18:00 12/06/17 17:48 Bumex 1 Mg IV 12/06/17 18:01 1 mg ONCE ONE Administration Intake & Output (Last 24 hours) 12/04/17 12/05/17 12/06/17 12/07/17 11:59 11:59 11:59 11:59 Intake Total 1984 Output Total 1250 Balance 734 Weight 59.4 kg Laboratory Results (Last 24 hours) 12/06/17 12/06/17 12/06/17 15:55 15:45 15:45 WBC RBC Hgb Hct MCV MCH MCHC RDW Plt Count MPV D-Dimer 563.60 H* Puncture Site RIGHT RADIAL pCO2 39 pO2 77 Base Excess 5.9 H O2 Saturation 89.3 L ABG pH 7.49 H ABG HCO3 29.7 H* ABG O2 Sat (Measured) 98.1 Isaac Test YES A-a Gradient 24 a/A Ratio 0.76 Hemoglobin 12.0 Carboxyhemoglobin 8.1 H* Methemoglobin 0.9 L Temperature 37.0 POC O2 Flow Rate 21 Sodium Potassium 3.6 Chloride Carbon Dioxide Anion Gap BUN Creatinine Estimated GFR Glucose Calcium Total Bilirubin AST ALT Alkaline Phosphatase Troponin I NT-Pro-B Natriuret Pep Serum Total Protein Albumin Influenza Type A Ag NEGATIVE Influenza Type B Ag NEGATIVE RSV (PCR) NEGATIVE 12/06/17 12/06/17 15:45 15:45 WBC 5.6 RBC 4.39 Hgb 13.0 Hct 39.7 MCV 90.4 MCH 29.6 MCHC 32.7 RDW 16.3 H Plt Count 102 L MPV 11.8 H D-Dimer Puncture Site pCO2 pO2 Base Excess O2 Saturation ABG pH ABG HCO3 ABG O2 Sat (Measured) Isaac Test A-a Gradient a/A Ratio Hemoglobin Carboxyhemoglobin Methemoglobin Temperature POC O2 Flow Rate Sodium 140 Potassium 3.6 Chloride 103 Carbon Dioxide 29.7 Anion Gap 11.1 BUN 11 Creatinine 0.73 Estimated GFR > 60 Glucose 98 Calcium 9.1 Total Bilirubin 0.40 AST 19 ALT 18 Alkaline Phosphatase 109 Troponin I < 0.017 NT-Pro-B Natriuret Pep 678 H Serum Total Protein 6.4 Albumin 3.7 Influenza Type A Ag Influenza Type B Ag RSV (PCR) Orders (Last 24 hours) Category Date Time Status Admission/Status Order ROUTINE Care 12/06/17 14:31 Active Sequential Compression Device Q6H Care 12/06/17 15:26 Active Incident Coordinator/Discharge Plan Cons 12/06/17 15:17 Active NPO Diet 12/06/17 17:17 Completed Regular Diet Diet 12/06/17 Dinner Completed Regular Diet Diet 12/07/17 Breakfast Active CHEST 2 VIEWS (PA AND LAT) Routine Exams 12/06/17 15:40 Completed CHEST WITH CONTRAST [CT] Routine Exams 12/06/17 17:30 Taken ARTERIAL BLOOD GASES Routine Lab 12/06/17 15:55 Completed CBC Urgent Lab 12/06/17 15:45 Completed CMP Urgent Lab 12/06/17 15:45 Completed D-DIMER QUANTITATION Urgent Lab 12/06/17 15:45 Completed NT PRO BNP Urgent Lab 12/06/17 15:45 Completed Respiratory Panel Urgent Lab 12/06/17 15:45 Completed TROPONIN Urgent Lab 12/06/17 15:45 Completed Albuterol Common Canister [Proventil Common Canister Med 12/06/17 19:00 Active ] 2 puff IH BID PRN PRN Albuterol/Ipratropium 3ml Neb* [DUONEB 0.5-3 MG/3 ml Med 12/07/17 07:00 Active Neb] 3 ml IH QIDRT Aspirin EC 81 mg [Ecotrin 81 mg] Med 12/06/17 22:00 Active 81 mg PO DAILY Bumetanide 1 mg [Bumex 1 mg] Med 12/06/17 18:00 Discontinued 1 mg IV ONCE ONE Ceftriaxone 1 GM/50 ML PREMIX* [ROCEPHIN 1 Gm-D5w 50 ml Med 12/06/17 16:00 Active Bag] 1 g in 50 ml IV DAILY Clonidine HCl 0.1 mg [Catapres 0.1 MG] Med 12/06/17 16:00 Active 0.1 mg PO TID D5w-0.45 NaCl 1000 ml [Dextrose 5% -0.45 NaCl 1000 ML] Med 12/06/17 16:00 Active 1,000 ml IV 60 mls/hr Donepezil HCl 10 mg [Aricept 10 MG] Med 12/06/17 22:00 Active 10 mg PO HS Flu Vac Qs 17-18(4Yr Up)Jade/Pf [Flucelvax Quad 2017- Med 12/07/17 10:00 Once 2018 Syr] 60 mcg IM .ONCE ONE Gabapentin 300 mg [Neurontin 300 mg] Med 12/06/17 16:00 Active 300 mg PO TID Hydrochlorothiazide 25 mg [hydroDIURIL 25 MG] Med 12/06/17 16:00 Active 25 mg PO DAILY KETOROLAC trometh 30 mg Inj [TORAdol 30 mg Injection Med 12/06/17 15:54 Active ] 30 mg IV Q6H PRN PRN Lisinopril 20 mg [Zestril 20 MG] Med 12/06/17 16:00 Active 20 mg PO DAILY Meloxicam 7.5 mg [Mobic 7.5 MG] Med 12/06/17 16:00 Active 15 mg PO DAILY Methylprednis Sod Succ 125 mg* [solu-MEDROL 125 MG] Med 12/06/17 18:00 Active 60 mg IV Q6HT PANTOPRAZOLE 40 mg Tablet [Protonix 40MG Tablet] Med 12/06/17 16:00 Active 40 mg PO DAILY Sertraline HCl 50 mg [Zoloft 50 mg Tablet] Med 12/06/17 22:00 Active 100 mg PO HS Tizanidine HCl 4 mg [Zanaflex 4 MG] Med 12/06/17 16:00 Active 2 mg PO TID EKG ROUTINE RT 12/06/17 15:40 Completed Respiratory MDI BID RT 12/06/17 19:00 Active Smoking Cessation Education RT 12/06/17 15:17 Completed neb [Respiratory Nebulizer] QID RT 12/07/17 07:00 Active Code(s): J20.9 - ACUTE BRONCHITIS, UNSPECIFIED; J42 - UNSPECIFIED CHRONIC BRONCHITIS (2) Hypertension Current Visit: Yes Status: Chronic Qualifiers: Hypertension type: essential hypertension Qualified Code(s): I10 - Essential (primary) hypertension Code(s): I10 - ESSENTIAL (PRIMARY) HYPERTENSION
[2017-12-07] MEDS: ROCEPHIN 1 Gm-D5w 50 ml Bag** 1 G/50 ML IVPB IV SCH (09:26)
[2017-12-07] MEDS: Protonix 40MG Tablet PO SCH (09:27)
[2017-12-07] MEDS: Mobic 7.5 MG PO SCH (09:27)
[2017-12-07] MEDS: NEURONTIN 300 MG PO SCH ×3 (09:27→20:37)
[2017-12-07] MEDS: ECOTRIN 81 MG PO SCH (09:27)
[2017-12-07] MEDS: Catapres 0.1 MG PO SCH ×3 (09:27→20:34)
[2017-12-07] MEDS: Zanaflex 4 MG PO SCH ×3 (09:28→20:35)
[2017-12-07] MEDS ORDERED: NON-FORMULARY ITEM (Meloxicam [Mobic] 15 MG) PO SCH (10:00)
[2017-12-07] MEDS ORDERED: HYDROCHLOROTHIAZIDE PO SCH (10:00)
[2017-12-07] MEDS ORDERED: [UNRECOGNIZED DRUG - OTHER] PO SCH (10:00)
[2017-12-07] MEDS ORDERED: SODIUM BICARBONATE PO SCH (10:00)
[2017-12-07] MEDS ORDERED: FLUCELVAX QUAD 2017-2018 SYR IM ONE (10:00)
[2017-12-07] MEDS ORDERED: LISINOPRIL PO SCH (10:00)
[2017-12-07] MEDS ORDERED: OMEPRAZOLE PO SCH (10:00)
[2017-12-07] MEDS: TYLENOL 325 MG PO PRN ×2 (11:48→21:20)
[2017-12-07] MEDS: hydroDIURIL 25 MG PO SCH (11:49)
[2017-12-07] MEDS: Nicoderm CQ 21 MG TOP SCH (13:43)
--- NOTE | 2017-12-07 14:46 | XRAY ---
Indication: Dyspnea on exertion. Elevated d-dimer. COPD. Multiple contiguous axial images obtained through the chest using 80 cc Isovue 370 contrast and PE protocol. Comparison: Conventional CT chest without contrast exam March 13, 2015. There is adequate opacification of the pulmonary arteries. No defect or pulmonary embolus. Heart is not enlarged. Aorta is normal in course and caliber. Stable mediastinal and bilateral calcified calcified nodes. No pathologic mediastinal/hilar lymphadenopathy. Examination of lung parenchyma demonstrates mild bilateral dependent atelectasis. There are again scattered bilateral calcified granulomas. No suspicious pulmonary mass, infiltrate, or effusion. Bony thorax demonstrates new remote-appearing T7/T8 compression deformities. Limited upper abdomen demonstrates calcified splenic granulomas. Impression: 1. Negative pulmonary embolus. 2. Again evidence for old granulomatous disease. No acute cardiopulmonary abnormalities. 3. Remote appearing T7/T8 compression deformities. Comment: Preliminary interpretation was made by [facility]. No critical discrepancy. CT DI 14.30
[2017-12-07] MEDS: ZOLOFT 50 MG TABLET PO SCH (20:34)
[2017-12-07] MEDS: Aricept 10 MG PO SCH (20:34)
[2017-12-07] MEDS ORDERED: Zestril 20 MG PO SCH (22:00)
[2017-12-08] MEDS: Dextrose 5% -0.45 NaCl 1000 ML 1,000 ML IV SCH (05:13)
[2017-12-08] MEDS: solu-MEDROL 125 MG IV SCH (05:14)
[2017-12-08] MEDS: DUONEB 0.5-3 MG/3 ml Neb IH SCH (06:51)
[2017-12-08 07:20] VITALS: BP 111/62; PULSE 67; O2SAT 97
[2017-12-08] MEDS: Nicoderm CQ 21 MG TOP SCH (08:46)
[2017-12-08] MEDS: ECOTRIN 81 MG PO SCH (08:47)
[2017-12-08] MEDS: hydroDIURIL 25 MG PO SCH (08:47)
[2017-12-08] MEDS: Zanaflex 4 MG PO SCH (08:47)
[2017-12-08] MEDS: ROCEPHIN 1 Gm-D5w 50 ml Bag** 1 G/50 ML IVPB IV SCH (08:47)
[2017-12-08] MEDS: Mobic 7.5 MG PO SCH (08:48)
[2017-12-08] MEDS: Catapres 0.1 MG PO SCH (08:48)
[2017-12-08] MEDS: NEURONTIN 300 MG PO SCH (08:49)
[2017-12-08] MEDS: Protonix 40MG Tablet PO SCH (08:55)
--- NOTE | 2017-12-08 10:32 | PCM.DS ---
Discharge Summary Date of Admission: 12/06/17 14:31 Admitting Physician: ZOHAIB ROBERSNO Primary Care Provider: ZOHAIB ROBERSON Allergies Allergies strawberry [[place]] Allergy (Mild, Verified 09/15/17 12:24) Hives Sulfa (Sulfonamide Antibiotics) [Sulfa(Sulfonamide Antibiotics)] Allergy (Mild, Verified 09/15/17 12:24) "I DON'T REMEMBER" dosent remember reaction. Hospital Summary - Hospital Course Hospital Course: Chief Complaint Diagnosis COPD EXACERBATION Allergies Allergy/AdvReac Type Severity Reaction Status Date / Time strawberry [[place]] Allergy Mild Hives Verified 09/15/17 12:24 Sulfa (Sulfonamide Allergy Mild "I DON'T Verified 09/15/17 12:24 Antibiotics) REMEMBER" [Sulfa(Sulfonamide Antibiotics)] Vital Signs (Last 24 hours) Temp Pulse Resp BP Pulse Ox 12/08/17 08:00 18 12/08/17 07:19 98 F 67 18 111/62 97 12/08/17 06:51 66 18 96 12/08/17 04:00 98.5 F 62 18 109/58 98 12/08/17 00:00 16 12/07/17 23:59 98.5 F 77 16 93/50 97 12/07/17 20:00 98.7 F 93 H 18 141/69 95 12/07/17 19:40 84 20 93 L 12/07/17 15:56 20 12/07/17 15:41 97.8 F 68 20 104/68 96 12/07/17 15:18 70 16 97 12/07/17 12:00 18 12/07/17 11:50 84 18 96 12/07/17 11:26 99.3 F 81 18 101/58 95 Home Medications Medication Instructions Recorded Confirmed Last Taken Type Gabapentin 300 mg PO TID 12/06/17 12/06/17 Unknown History Lisinopril/Hydrochlorothiazide 1 each PO DAILY 12/06/17 12/06/17 1 Day Ago History [Zestoretic 20-25 Tablet] ~12/05/17 1 each Meloxicam [Mobic] 15 mg PO DAILY 12/06/17 12/06/17 Unknown History Omeprazole/Sodium Bicarbonate 1 each PO DAILY 12/06/17 12/06/17 Unknown History [Omeppi 40 mg-1,100 mg Capsule] Tizanidine HCl [Zanaflex] 2 mg PO TID 12/06/17 12/06/17 Unknown History Cephalexin Mh 500 mg [Keflex 500 500 mg PO QID #28 capsule 12/08/17 Unknown Rx mg] Methylprednisolone Packet 4 mg PO UD #30 packet 12/08/17 Unknown Rx [Medrol Dosepack] Current Medications Discontinued Medications Generic Name Dose Route Start Last Admin Trade Name Freq PRN Reason Stop Dose Admin Acetaminophen 650 mg 12/07/17 11:24 12/07/17 21:20 Tylenol 325 Mg PO 01/06/18 11:23 650 mg Q4H PRN PRN Administration PAIN AND/OR FEVER Albuterol Sulfate 2 puff 12/06/17 19:00 12/06/17 19:09 Proventil Common Canister IH 2 puff BID PRN PRN Administration Albuterol/Ipratropium 3 ml 12/07/17 07:00 12/08/17 06:51 Duoneb 0.5-3 Mg/3 Ml Neb IH 01/06/18 06:59 3 ml QIDRT DAMON Administration Aspirin 81 mg 12/06/17 22:00 12/08/17 08:47 Ecotrin 81 Mg PO 01/05/18 21:59 81 mg DAILY DAMON Administration Bumetanide 1 mg 12/06/17 18:00 12/06/17 17:48 Bumex 1 Mg IV 12/06/17 18:01 1 mg ONCE ONE Administration Clonidine 0.1 mg 12/06/17 16:00 12/08/17 08:48 Catapres 0.1 Mg PO 01/05/18 15:59 0.1 mg TID DAMON Administration Donepezil HCl 10 mg 12/06/17 22:00 12/07/17 20:34 Aricept 10 Mg PO 01/05/18 21:59 10 mg HS DAMON Administration Gabapentin 300 mg 12/06/17 16:00 12/08/17 08:49 Neurontin 300 Mg PO 01/05/18 15:59 300 mg TID DAMON Administration Hydrochlorothiazide 25 mg 12/06/17 16:00 12/08/17 08:47 Hydrodiuril 25 Mg PO 01/05/18 15:59 25 mg DAILY DAMON Administration Dextrose/Sodium Chloride 1,000 mls @ 60 mls/hr 12/06/17 16:00 12/08/17 05:13 Dextrose 5% -0.45 Nacl 1000 Ml IV 01/05/18 15:59 100 mls/hr .[id number] DAMON Administration Ceftriaxone Sodium/Dextrose 1 g in 50 mls @ 100 mls/hr 12/06/17 16:00 08:47 Rocephin 1 Gm-D5w 50 Ml Bag IV 01/05/18 15:59 100 mls/hr DAILY DAOMN Administration Influenza Virus Vaccine Quadrival 60 mcg 12/07/17 10:00 12/07/17 10:50 Flucelvax Quad [id number] Syr IM 12/07/17 10:01 60 mcg .ONCE ONE Administration Ketorolac Tromethamine 30 mg 12/06/17 15:54 12/07/17 20:33 Toradol 30 Mg Injection IV 12/11/17 15:53 30 mg Q6H PRN PRN Administration PAIN Lisinopril 20 mg 12/06/17 16:00 12/06/17 17:10 Zestril 20 Mg PO 01/05/18 15:59 20 mg DAILY DAMON Administration Lisinopril 20 mg 12/07/17 22:00 12/07/17 20:35 Zestril 20 Mg PO 01/06/18 21:59 20 mg HS DAMON Administration Meloxicam 15 mg 12/06/17 16:00 12/08/17 08:48 Mobic 7.5 Mg PO 01/05/18 15:59 15 mg DAILY DAMON Administration Methylprednisolone Sodium Succinate 60 mg 12/06/17 18:00 12/08/17 05:14 Solu-Medrol 125 Mg IV 01/05/18 17:59 60 mg Q6HT DAMON Administration Nicotine 21 mg 12/07/17 13:15 12/08/17 08:46 Nicoderm Cq 21 Mg TOP 01/06/18 13:14 21 mg Q24H10 DAMON Administration Pantoprazole Sodium 40 mg 12/06/17 16:00 12/08/17 08:55 Protonix 40mg Tablet PO 01/05/18 15:59 40 mg DAILY DAMON Administration Sertraline HCl 100 mg 12/06/17 22:00 12/07/17 20:34 Zoloft 50 Mg Tablet PO 01/05/18 21:59 100 mg HS DAMON Administration Tizanidine HCl 2 mg 12/06/17 16:00 12/08/17 08:47 Zanaflex 4 Mg PO 01/05/18 15:59 2 mg TID DAMON Administration Intake & Output (Last 24 hours) 12/05/17 12/06/17 12/07/17 12/08/17 11:59 11:59 11:59 11:59 Intake Total 1983 3632 Output Total 1250 2100 Balance 734 1532 Weight 59.4 kg Orders (Last 24 hours) Category Date Time Status Discharge Routine Discharge 12/08/17 Ordered Discharge/Telephone Order Routine Discharge 12/08/17 Active Acetaminophen 325 mg [Tylenol 325 mg] Med 12/07/17 11:24 Discontinued 650 mg PO Q4H PRN PRN Flu Vac Qs 17-18(4Yr Up)Jade/Pf [Flucelvax Quad 2017- Med 12/07/17 10:00 Discontinued 2018 Syr] 60 mcg IM .ONCE ONE Lisinopril 20 mg [Zestril 20 MG] Med 12/07/17 22:00 Discontinued 20 mg PO HS Nicotine 21 mg [Nicoderm CQ 21 MG] Med 12/07/17 13:15 Discontinued 21 mg TOP Q24H10 Peak Expiratory Flow Rate ASORD RT 12/07/17 11:52 Active Patient Care Notes (Last 24 hours) 12/08/17 09:10 (created 12/08/17 10:02) Case Management Note by Nathaly Khan MD ORDER TO DC HOME TODAY. PT CONTINUES TO PLAN TO RETURN HOME WITH SIGNIFICANT OTHER, MARYAM. DECLINED NEEDS FOR DISCHARGE. INDEPENDENT WITH ALL ADL'S. MARYAM CAN ASSIST IF NEEDED. Initialized on 12/08/17 10:02 - END OF NOTE 12/07/17 15:04 Nursing Note by Preeti Gibson eating chips and ice cream. says pain is better. Initialized on 12/07/17 15:04 - END OF NOTE 12/07/17 14:40 (created 12/07/17 15:04) Nursing Note by Preeti Gibson c/o chest pain at an 8. sr on tele, resp unlabored. says it hurts worse when she sits up. toradol given. Initialized on 12/07/17 15:04 - END OF NOTE - Vitals & Intake/Output Vital Signs: Vital Signs Temperature 98 F 12/08/17 07:19 Pulse Rate 67 12/08/17 07:19 Respiratory Rate 18 12/08/17 08:00 Blood Pressure 111/62 12/08/17 07:19 O2 Sat by Pulse Oximetry 97 12/08/17 07:19 Intake & Output: Intake & Output 12/05/17 12/06/17 12/07/17 12/08/17 11:59 11:59 11:59 11:59 Intake Total 1983 3632 Output Total 1250 2100 Balance 734 1532 Weight 59.4 kg - Lab Result Diagrams: 12/06/17 15:45 12/06/17 15:45 - Radiology Exams Ordered Rad Exams-Entire Visit: Radiology Procedures Category Date Time Status CHEST 2 VIEWS (PA AND LAT) Routine Exams 12/06/17 15:40 Completed CHEST WITH CONTRAST [CT] Routine Exams 12/06/17 17:30 Completed - Procedures and Test Procedures and Tests throughout Hospitalization: Therapy Orders & Screens 12/06/17 15:17 Smoking Cessation Education Comment: Diagnosis: COPD EXACERBATION Smoking Status: Current every day smoker How long have you smoked: 25 YEARS Have you smoked in the past 12 months: Yes Approximately how many cigarettes per day: 1/2-1 PACK Do you dip or chew tobacco: No 12/06/17 15:40 EKG ROUTINE Comment: Diagnosis: COPD EXACERBATION 12/06/17 19:00 Respiratory MDI BID Comment: Diagnosis: COPD EXACERBATION 12/07/17 07:00 neb [Respiratory Nebulizer] QID Comment: Diagnosis: COPD EXACERBATION 12/07/17 11:52 Peak Expiratory Flow Rate ASORD Comment: Reason For Exam: Diagnosis: COPD EXACERBATION Discharge Exam General Appearance: no apparent distress, alert Neurologic Exam: alert, oriented x 3, cooperative, normal mood/affect, nml cerebellar function, sensation nml, No motor deficits Skin Exam: normal color, warm, dry Eye Exam: PERRL, EOMI, eyes nml inspection Ears, Nose, Throat Exam: normal ENT inspection, pharynx normal, moist mucous membranes Neck Exam: normal inspection, non-tender, supple, full range of motion Respiratory Exam: normal breath sounds, lungs clear, No respiratory distress Cardiovascular Exam: regular rate/rhythm, normal heart sounds Gastrointestinal/Abdomen Exam: soft, No tenderness, No mass Extremity Exam: normal inspection, normal range of motion Back Exam: normal inspection, normal range of motion, No CVA tenderness, No vertebral tenderness Pelvic Exam: deferred Rectal Exam: deferred Final Diagnosis/Problem List - Final Discharge Diagnosis/Problem (1) Acute exacerbation of chronic bronchitis Status: Resolved Assessment & Plan: Last Vital Signs Temp 98 F 12/08/17 07:19 Pulse 67 12/08/17 07:19 Resp 18 12/08/17 08:00 BP 111/62 12/08/17 07:19 Pulse Ox 97 12/08/17 07:19 Allergies strawberry [[place]] Allergy (Mild, Verified 09/15/17 12:24) Hives Sulfa (Sulfonamide Antibiotics) [Sulfa(Sulfonamide Antibiotics)] Allergy (Mild, Verified 09/15/17 12:24) "I DON'T REMEMBER" dosent remember reaction. Intake & Output 12/07/17 12/08/17 11:59 11:59 Intake Total 1984 3632 Output Total 1250 2100 Balance 734 1532 Weight 59.4 kg Orders 12/07/17 11:52 Peak Expiratory Flow Rate ASORD 12/08/17 Discharge Routine Discharge/Telephone Order Routine (2) Hypertension Status: Chronic - Discharge Discharge Date: 12/08/17 Disposition: Home, Self-Care Condition: Stable Prescriptions: New Cephalexin Mh 500 mg [Keflex 500 mg] 500 mg PO QID #28 capsule Methylprednisolone Packet [Medrol Dosepack] 4 mg PO UD #30 packet Continue Sertraline HCl [Zoloft] 100 mg PO HS Donepezil HCl 10 mg [Aricept 10 MG] 10 mg PO HS Clonidine HCl 0.1 mg [Catapres 0.1 MG] 0.1 mg PO TID Tizanidine HCl [Zanaflex] 2 mg PO TID Meloxicam [Mobic] 15 mg PO DAILY Gabapentin 300 mg PO TID Omeprazole/Sodium Bicarbonate [Omeppi 40 mg-1,100 mg Capsule] 1 each PO DAILY Lisinopril/Hydrochlorothiazide [Zestoretic 20-25 Tablet] 1 each PO DAILY Instructions: Exacerbation of COPD (DC) Follow up with: ZOHAIB ROBERSON [Primary Care Provider] - 12/15/17 11:45 am ([place] office ) Forms: Discharge Instructions
== END 2017-12-08 09:55 | disposition home or self-care (01) ==
LOC: MED SURG 14:31
PROVIDERS: ADMIT General Practice; ATTEND General Practice
DX: J44.1 Chronic obstructive pulmonary disease with (acute) exacerbation (principal); J44.0 Chronic obstructive pulmonary disease with (acute) lower respiratory infection; I10 Essential (primary) hypertension; J44.9 Chronic obstructive pulmonary disease, unspecified; Z85.41 Personal history of malignant neoplasm of cervix uteri; K21.9 Gastro-esophageal reflux disease without esophagitis; F34.1 Dysthymic disorder; G89.4 Chronic pain syndrome; J18.0 Bronchopneumonia, unspecified organism; R07.9 Chest pain, unspecified; Z79.899 Other long term (current) drug therapy
CPT/HCPCS: 36415; 36600; 71046; 71260; 80053; 82375; 82803; 83880; 84484; 85027; 85379; 87631; 93005; 94150; 94640; 94760; G0008; G0378; J0696; J1885; J2930; 90682; A9270-GY

== ENCOUNTER 2018-01-01 12:55 | Observation (INO) | payer MEDICAID ==
[2018-01-01] MEDS ORDERED: Zofran 4 MG/2 ML VIAL IV PRN (13:59)
[2018-01-01] MEDS ORDERED: DUONEB 0.5-3 MG/3 ml Neb IH PRN (13:59)
[2018-01-01] MEDS ORDERED: PROTONIX 40 MG IV IV SCH (14:00)
[2018-01-01 14:24] LABS: Hematocrit 40.1 % (35-47); Hemoglobin 13.2 gm/dl (12.0-16.0); Mean Cell Volume 89.1 fl (78-100); Mean Corpuscular Hemoglobin 29.3 pg (26-32); Mean Corpuscular Hgb Concent. 32.9 g/dl (32-36); Mean Platelet Volume 11.2 fl (6-9.5); Platelet Count 142 K/mm3 (150-450); Red Cell Distribution Width 15.7 % (11.5-14.0); White Blood Count 7.2 K/mm3 (4.0-10.5)
[2018-01-01] MEDS: DILAUDID 2 MG INJECTION IV PRN ×2 (14:33→18:44)
[2018-01-01] MEDS: Dextrose 5% -0.45 NaCl 1000 ML 1,000 ML IV SCH (14:37)
[2018-01-01] MEDS: DUONEB 0.5-3 MG/3 ml Neb IH SCH ×2 (14:41→21:17)
[2018-01-01 14:55] LABS: ALBUMIN 4.1 g/dL (3.5-5.0); ALKALINE PHOSPHATASE 86 U/L (38-126); CHLORIDE 106 mmol/L (98-107); Calcium 9.3 mg/dL (8.4-10.2); Carbon Dioxide 22 mmol/L (22-30); Creatinine 1 0.73 mg/dL (0.52-1.04); Glucose 91 mg/dL (74-106); LIPASE 65 U/L (23-300); Potassium 3.9 mmol/L (3.5-5.1); SGOT/AST 25 U/L (14-36); SGPT/ALT 20 U/L (0-35); SODIUM 139 mmol/L (137-145); Total Protein 6.6 g/dL (6.3-8.2)
[2018-01-01 15:10] LABS: BLOOD UREA NITROGEN 23 mg/dL (7-17); TROPONIN < 0.012 ng/mL (0.000-0.034)
[2018-01-01] MEDS ORDERED: Ativan 0.5 MG PO PRN (15:15)
--- NOTE | 2018-01-01 15:31 | XRAY ---
Indication: Chest pain and short of breath. Comparison: December 06, 2017. PA/lateral chest again hyperinflated with scattered pulmonary/mediastinal calcified granulomas. No focal infiltrate, consolidation, or large effusion. Heart is not enlarged. Bony thorax intact again with osteopenia, degenerative changes, remote multilevel thoracic compression deformities, and remote proximal left humeral fracture. Impression: Stable nonacute hyperinflated chest with chronic features.
--- NOTE | 2018-01-01 15:53 | XRAY ---
Indication: Abdominal pain. Multiple contiguous axial images obtained through the abdomen and pelvis without contrast as ordered. Comparison: September 15, 2017. Lung bases again demonstrates bibasilar dependent atelectasis/scarring and scattered calcified granulomas. Heart is not enlarged. Stable small hiatal hernia. Noncontrasted stomach and bowel loops appear nonobstructed again with minimal sigmoid diverticulosis. Previous reported appendectomy, cholecystectomy, and hysterectomy. Stable chunky calcifications in the gallbladder fossa again without abnormal biliary distention. Spleen borderline enlarged today measuring 12.3 cm in greatest axial dimension again with scattered calcified granulomas. Remaining liver, pancreas, adrenal glands, kidneys, ureters, and bladder appear unremarkable for noncontrast exam. Stable moderate aortoiliac calcifications without AAA. Osseous structures intact again with remote T12 endplate fracture, degenerative changes throughout the spine, and old right inferior pubic bone fracture. Impression: 1. No new or acute intra-abdominal/pelvic abnormalities on this noncontrast exam. 2. Stable small hiatal hernia, chunky calcifications in the gallbladder fossa, splenomegaly, sigmoid diverticulosis, and evidence for old granulomatous disease. CTDI 15.46
[2018-01-01] MEDS: Catapres 0.1 MG PO SCH ×2 (15:55→21:52)
[2018-01-01] MEDS: NEURONTIN 300 MG PO SCH ×2 (15:55→21:51)
[2018-01-01] MEDS ORDERED: Ventolin Hfa MDI IH SCH (17:00)
[2018-01-01 18:12] LABS: INR 1.02 (0.8-3.0)
[2018-01-01 18:15] LABS: PTT 29.7 SECONDS (25.3-37.0)
[2018-01-01] MEDS: Advair Hfa 115/21 Common canister IH SCH (21:18)
[2018-01-01] MEDS: Zanaflex 4 MG PO SCH (21:51)
[2018-01-01] MEDS ORDERED: ENOXAPARIN SODIUM SQ SCH (22:00)
[2018-01-01] MEDS ORDERED: Aricept 10 MG PO SCH (22:00)
[2018-01-01] MEDS ORDERED: TIZANIDINE HCL 2 MG PO SCH (22:00)
[2018-01-01] MEDS ORDERED: ZOLOFT 50 MG TABLET PO SCH (22:00)
[2018-01-01] MEDS ORDERED: NON-FORMULARY ITEM (Sertraline Hcl [Zoloft] 100 MG) PO SCH (22:00)
[2018-01-02] MEDS: Dextrose 5% -0.45 NaCl 1000 ML 1,000 ML IV SCH (01:11)
[2018-01-02] MEDS: TYLENOL 325 MG PO PRN ×2 (03:09→10:46)
[2018-01-02 05:57] LABS: BLOOD UREA NITROGEN 20 mg/dL (7-17); CHLORIDE 104 mmol/L (98-107); Calcium 8.7 mg/dL (8.4-10.2); Carbon Dioxide 25 mmol/L (22-30); Creatinine 1 0.73 mg/dL (0.52-1.04); Glucose 118 mg/dL (74-106); SODIUM 138 mmol/L (137-145)
[2018-01-02 05:59] LABS: Potassium 3.8 mmol/L (3.5-5.1)
[2018-01-02 06:15] LABS: ANION GAP 12.8 MEQ/L (5-15)
[2018-01-02] MEDS: Advair Hfa 115/21 Common canister IH SCH (06:40)
[2018-01-02] MEDS: DUONEB 0.5-3 MG/3 ml Neb IH SCH (06:40)
--- NOTE | 2018-01-02 09:04 | PCM.NOTE ---
Date and Time: 01/02/18900 Subjective Assessment: doing ok - Review of Systems Constitutional: No Fever, No Chills Eyes: No Symptoms Ears, Nose, & Throat: No Symptoms Respiratory: Orthopnea, Short Of Breath, No Cough Cardiac: No Chest Pain, No Edema, No Syncope Abdominal/Gastrointestinal: No Abdominal Pain, No Nausea, No Vomiting, No Diarrhea Genitourinary Symptoms: No Dysuria Musculoskeletal: No Back Pain, No Neck Pain Skin: No Rash Neurological: No Dizziness, No Focal Weakness, No Sensory Changes Psychological: No Symptoms Endocrine: No Symptoms Hematologic/Lymphatic: No Symptoms Immunological/Allergic: No Symptoms Objective Exam General Appearance: no apparent distress, alert Neurologic Exam: alert, oriented x 3, cooperative, normal mood/affect, nml cerebellar function, sensation nml, No motor deficits Skin Exam: normal color, warm, dry Eye Exam: PERRL, EOMI, eyes nml inspection Ears, Nose, Throat Exam: normal ENT inspection, pharynx normal, moist mucous membranes Neck Exam: normal inspection, non-tender, supple, full range of motion Respiratory Exam: normal breath sounds, lungs clear, No respiratory distress Cardiovascular Exam: regular rate/rhythm, normal heart sounds Gastrointestinal/Abdomen Exam: soft, No tenderness, No mass Extremity Exam: normal inspection, normal range of motion Back Exam: normal inspection, normal range of motion, No CVA tenderness, No vertebral tenderness Pelvic Exam: deferred Rectal Exam: deferred OBJECTIVE DATA Vital Signs: Vital Signs - 24 hr Temp Pulse Resp BP Pulse Ox 01/02/18 08:00 98.6 F 67 16 101/57 96 01/02/18 07:23 69 16 97 01/02/18 03:25 98.4 F 60 18 94/50 94 L 01/02/18 00:00 98.8 F 75 16 89/59 96 01/01/18 21:22 62 20 93 L 01/01/18 20:00 98.7 F 68 16 109/63 94 L 01/01/18 16:44 20 97 01/01/18 13:50 99 F 77 20 112/70 98 01/01/18 13:21 76 18 98 Pain Assessment - Last Documented Pain Intensity 5 Pain Scale Used 0-10 Pain Scale Intake and Output: Intake & Output 12/30/17 12/31/17 01/01/18 01/02/18 11:59 11:59 11:59 11:59 Intake Total 0 Output Total 300 Balance -300 Weight 60.3 kg Lab Results: Lab Results-Last 24 Hours 01/01/18 01/01/18 01/01/18 Range/Units 14:12 14:12 14:12 WBC 7.2 (4.0-10.5) K/mm3 RBC 4.50 (4.1-5.4) M/mm3 Hgb 13.2 (12.0-16.0) gm/dl Hct 40.1 (35-47) % MCV 89.1 (78-100) fl MCH 29.3 (26-32) pg MCHC 32.9 (32-36) g/dl RDW 15.7 H (11.5-14.0) % Plt Count 142 L (150-450) K/mm3 MPV 11.2 H (6-9.5) fl INR (0.8-3.0) APTT (25.3-37.0) SECONDS D-Dimer 642.82 H* (215-500) ng/mL Sodium 139 (137-145) mmol/L Potassium 3.9 (3.5-5.1) mmol/L Chloride 106 (98-107) mmol/L Carbon Dioxide 22 (22-30) mmol/L Anion Gap 15.0 (5-15) MEQ/L BUN 23 H (7-17) mg/dL Creatinine 0.73 (0.52-1.04) mg/dL Estimated GFR > 60 ML/MIN Glucose 91 (74-106) mg/dL Calcium 9.3 (8.4-10.2) mg/dL Total Bilirubin 0.50 (0.2-1.3) mg/dL AST 25 (14-36) U/L ALT 20 (0-35) U/L Alkaline Phosphatase 86 (38-126) U/L Troponin I < 0.012 (0.000-0.034) ng/mL NT-Pro-B Natriuret Pep (0-900) pg/mL Serum Total Protein 6.6 (6.3-8.2) g/dL Albumin 4.1 (3.5-5.0) g/dL Lipase 65 (23-300) U/L 01/01/18 01/01/18 01/02/18 Range/Units 14:12 Unknown 04:48 WBC (4.0-10.5) K/mm3 RBC (4.1-5.4) M/mm3 Hgb (12.0-16.0) gm/dl Hct (35-47) % MCV (78-100) fl MCH (26-32) pg MCHC (32-36) g/dl RDW (11.5-14.0) % Plt Count (150-450) K/mm3 MPV (6-9.5) fl INR 1.02 (0.8-3.0) APTT 29.7 (25.3-37.0) SECONDS D-Dimer (215-500) ng/mL Sodium 138 (137-145) mmol/L Potassium 3.8 (3.5-5.1) mmol/L Chloride 104 (98-107) mmol/L Carbon Dioxide 25 (22-30) mmol/L Anion Gap 12.8 (5-15) MEQ/L BUN 20 H (7-17) mg/dL Creatinine 0.73 (0.52-1.04) mg/dL Estimated GFR > 60 ML/MIN Glucose 118 H (74-106) mg/dL Calcium 8.7 (8.4-10.2) mg/dL Total Bilirubin (0.2-1.3) mg/dL AST (14-36) U/L ALT (0-35) U/L Alkaline Phosphatase (38-126) U/L Troponin I (0.000-0.034) ng/mL NT-Pro-B Natriuret Pep 74.6 (0-900) pg/mL Serum Total Protein (6.3-8.2) g/dL Albumin (3.5-5.0) g/dL Lipase (23-300) U/L Radiology Exams: Radiology Procedures Category Date Time Status ABDOMEN AND PELVIS W/0 CONTRAS [CT] Routine Exams 01/01/18 15:16 Completed CHEST 2 VIEWS (PA AND LAT) Urgent Exams 01/01/18 13:30 Completed CHEST WITH CONTRAST [CT] Urgent Exams 01/02/18 12:00 Ordered GUIDE FOR VASCULAR ACCESS [US] Routine Exams 01/02/18 09:00 Ordered PICC LINE PLACEMENT Routine Exams 01/02/18 Ordered Assessment/Plan (1) D-dimer, elevated Current Visit: Yes Status: Acute Code(s): R79.89 - OTHER SPECIFIED ABNORMAL FINDINGS OF BLOOD CHEMISTRY (2) Abdominal pain Current Visit: Yes Status: Resolved Qualifiers: Abdominal location: generalized Qualified Code(s): R10.84 - Generalized abdominal pain Code(s): R10.9 - UNSPECIFIED ABDOMINAL PAIN
--- NOTE | 2018-01-02 09:56 | XRAY ---
Indication: Ultrasound guidance for PICC line placement. Initial sonographic imaging of the right upper extremity was performed for localization of patent veins. A patent basilic vein identified above the elbow. Ultrasound guidance was then used for PICC line insertion. Full PICC line insertion is reported separately.
[2018-01-02] MEDS ORDERED: HYDROCHLOROTHIAZIDE PO SCH (10:00)
[2018-01-02] MEDS ORDERED: LISINOPRIL PO SCH (10:00)
[2018-01-02] MEDS ORDERED: Mobic 7.5 MG PO SCH (10:00)
[2018-01-02] MEDS ORDERED: Protonix 40MG Tablet PO SCH (10:00)
[2018-01-02] MEDS ORDERED: NON-FORMULARY ITEM (Fluticasone/Umeclidin/Vilanter [Trelegy Ellipta 100-62.5-25] 1 EACH) IH SCH (10:00)
[2018-01-02] MEDS ORDERED: Zestril 20 MG PO SCH (10:00)
[2018-01-02] MEDS ORDERED: OMEPRAZOLE PO SCH (10:00)
[2018-01-02] MEDS ORDERED: SODIUM BICARBONATE PO SCH (10:00)
[2018-01-02] MEDS ORDERED: hydroDIURIL 25 MG PO SCH (10:00)
[2018-01-02] MEDS ORDERED: [UNRECOGNIZED DRUG - OTHER] PO SCH (10:00)
[2018-01-02] MEDS ORDERED: NON-FORMULARY ITEM (Meloxicam [Mobic] 15 MG) PO SCH (10:00)
--- NOTE | 2018-01-02 10:01 | XRAY ---
Indication: Short of breath. Elevated d-dimer. Poor IV access. Informed consent obtained. Patient was placed on the fluoroscopic table in a supine position. Initial sonographic imaging of the right upper extremity was performed for localization of patent veins. The right upper extremity was then prepped and draped in sterile fashion. Tourniquet applied. 1% lidocaine plain used for local anesthesia. Using ultrasound guidance and a micropuncture needle, a basilic vein above the elbow was successfully percutaneously cannulized. A floppy tip 0.018 guidewire inserted. Tourniquet released. Needle was exchanged for a 5 [place] dilator peel-away sheath catheter. Ultimately a 5 [place] double-lumen PICC line was inserted over a longer 0.018 guidewire with the tip positioned in the distal SVC using fluoroscopic guidance. Guidewire removed. Both ports flushed with heparinized saline. Catheter was secured. Postoperative instructions and orders given. Patient discharged in good condition. Impression: Technically successful right upper extremity PICC line placement using ultrasound and fluoroscopic guidance. No immediate complications. Approximately 1 cc blood loss. Approximately 0.2 minute of fluoroscopy used. Catheter length is 36.5 cm.
--- NOTE | 2018-01-02 10:38 | XRAY ---
Indication: Elevated d-dimer. Multiple contiguous axial images obtained through the chest using 80 cc Isovue 370 contrast and PE protocol. Comparison: December 06, 2017. There is good opacification of the pulmonary arteries to include lobar and segmental branches. Again no filling defect or pulmonary embolus. Heart is not enlarged. Aorta again minimally arteriosclerotic without aneurysm/dissection. Stable mediastinal and bilateral hilar calcified nodes. No pathologic mediastinal/hilar lymphadenopathy. There is now small hiatal hernia. Examination of the lung parenchyma again demonstrates mild bilateral dependent atelectasis and scattered calcified granulomas. Again no suspicious pulmonary mass, infiltrate, or effusion. Bony thorax intact with remote T7/T8/L1 compression fractures. CT abdomen reported one day earlier. Impression: 1. Again negative pulmonary embolus. No new/acute cardiopulmonary abnormalities. 2. Again evidence for old granulomatous disease. 3. New small hiatal hernia. 4. Remote appearing T7/T8/L1 compression fractures. CT DI 18.29
[2018-01-02] MEDS: Catapres 0.1 MG PO SCH (10:46)
[2018-01-02] MEDS: Zanaflex 4 MG PO SCH (10:47)
[2018-01-02] MEDS: NEURONTIN 300 MG PO SCH (10:47)
[2018-01-02 13:01] VITALS: BP 98/69; PULSE 65; O2SAT 97
[2018-01-02] MEDS ORDERED: ENOXAPARIN SODIUM SQ SCH (22:00)
== END 2018-01-02 13:30 | disposition home or self-care (01) ==
LOC: MED SURG 12:55
PROVIDERS: ADMIT General Practice; ATTEND General Practice
DX: R10.12 Left upper quadrant pain (principal); J44.9 Chronic obstructive pulmonary disease, unspecified; I10 Essential (primary) hypertension; K21.9 Gastro-esophageal reflux disease without esophagitis; F34.1 Dysthymic disorder; G89.4 Chronic pain syndrome; R79.89 Other specified abnormal findings of blood chemistry; Z79.899 Other long term (current) drug therapy
CPT/HCPCS: 36415; 36569; 71046; 71260; 74176; 76937; 77001; 80048; 80053; 83690; 83880; 84484; 85027; 85379; 85610; 85730; 93005; 94150; 94640; 94760; C1769; G0378; J1170; J1642; J1650; A9270-GY

== ENCOUNTER 2018-01-04 18:10 | Emergency (ER) | payer MEDICAID ==
[2018-01-04] MEDS ORDERED: Zofran 4 MG/2 ML VIAL IV ONE (18:36)
[2018-01-04] MEDS ORDERED: MORPHINE SULFATE 2 MG INJ IV ONE (18:36)
[2018-01-04] MEDS ORDERED: Sodium Chloride 0.9% 1000 ML 1,000 ML IV STA (18:36)
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
[2018-01-04] MEDS ORDERED: Zofran 4 MG/2 ML VIAL ONE (19:09)
[2018-01-04] MEDS ORDERED: MORPHINE SULFATE 2 MG INJ ONE (19:10)
[2018-01-04] MEDS ORDERED: Sodium Chloride 0.9% 1000 ML 1,000 ML ONE (19:10)
[2018-01-04 19:28] LABS: BASOPHIL % 0.3 % (0.0-0.4); Basophil (Absolute #) 0.02 (0-0.4); Eosinophil % 2.3 % (0.00-5.0); Eosinophil (Absolute #) 0.13 (0-0.5); Granulocyte Absolute (ANC) 3.03 (1.4-6.9); Granulocytes % 52.6 % (36.0-66.0); Hematocrit 40.4 % (35-47); Hemoglobin 13.5 gm/dl (12.0-16.0); Lymphocyte (Absolute #) 2.12 (1.0-4.6); Lymphocytes % 36.8 % (24.0-44.0); Mean Cell Volume 87.8 fl (78-100); Mean Corpuscular Hemoglobin 29.3 pg (26-32); Mean Corpuscular Hgb Concent. 33.4 g/dl (32-36); Mean Platelet Volume 11.4 fl (6-9.5); Monocyte (Absolute #) 0.46 (0.0-1.3); Platelet Count 163 K/mm3 (150-450); Red Cell Distribution Width 15.1 % (11.5-14.0); White Blood Count 5.8 K/mm3 (4.0-10.5)
[2018-01-04] MEDS ORDERED: Sodium Chloride 0.9% 1000 ML 0 ML ONE (19:39)
[2018-01-04 19:45] LABS: INR 0.99 (0.8-3.0)
[2018-01-04 19:56] LABS: ALBUMIN 4.3 g/dL (3.5-5.0); ALKALINE PHOSPHATASE 90 U/L (38-126); ANION GAP 15.5 MEQ/L (5-15); BLOOD UREA NITROGEN 20 mg/dL (7-17); CHLORIDE 101 mmol/L (98-107); Calcium 10.1 mg/dL (8.4-10.2); Carbon Dioxide 27 mmol/L (22-30); Creatinine 1 0.85 mg/dL (0.52-1.04); Glucose 83 mg/dL (74-106); LIPASE 70 U/L (23-300); Potassium 4.7 mmol/L (3.5-5.1); SGOT/AST 31 U/L (14-36); SGPT/ALT 21 U/L (0-35); SODIUM 139 mmol/L (137-145); Total Protein 6.8 g/dL (6.3-8.2)
[2018-01-04 20:59] VITALS: PULSE 61; O2SAT 95
[2018-01-04 21:10] LABS: Amphetamine,Urine NEGATIVE (NEGATIVE); Barbiturate,Urine NEGATIVE (NEGATIVE); Benzodiazepine,Urine NEGATIVE (NEGATIVE); Cocaine,Urine NEGATIVE (NEGATIVE); Methadone,Urine NEGATIVE (NEGATIVE); Opiate,Urine POSITIVE (NEGATIVE); PCP,Urine NEGATIVE (NEGATIVE); THC,Urine NEGATIVE (NEGATIVE)
[2018-01-04 21:32] LABS: Appearance CLEAR (CLEAR); Leukocyte Esterase TRACE (NEGATIVE)
[2018-01-04 21:33] LABS: Bilirubin NEGATIVE (NEGATIVE); Blood NEGATIVE Ery/ul (0-5); Glucose NEGATIVE (NEGATIVE); Ketones NEGATIVE (NEGATIVE); Nitrite NEGATIVE (NEGATIVE); Protein,Urine Dip NEGATIVE (Negative); Urobilinogen NORMAL mg/dL (0-1); WBC 0-2 /HPF (0-5)
[2018-01-04 21:34] LABS: Epithelial Cells FEW /HPF (FEW)
[2018-01-04 21:47] VITALS: BP 137/75
== END 2018-01-04 21:57 | disposition home or self-care (01) ==
LOC: ED 18:10
DX: K62.5 Hemorrhage of anus and rectum (principal); R10.31 Right lower quadrant pain; Z79.899 Other long term (current) drug therapy; R11.0 Nausea
CPT/HCPCS: 36000; 36415; 80053; 80307; 81000; 82272; 83605; 83690; 84484; 85025; 85610; 93005; 96360; 96365; 96374; 99284; J2270; J2405

== ENCOUNTER 2018-01-29 16:01 | Emergency (ER) | payer MEDICAID ==
[2018-01-29] MEDS ORDERED: TORAdol 30 mg Injection IV ONE (17:05)
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
[2018-01-29] MEDS ORDERED: Sodium Chloride 0.9% 1000 ML 1,000 ML IV SCH (17:15)
[2018-01-29] MEDS ORDERED: Sodium Chloride 0.9% 1000 ML 1,000 ML ONE (17:19)
[2018-01-29] MEDS ORDERED: TORAdol 30 mg Injection ONE (17:19)
[2018-01-29 17:45] LABS: BASOPHIL % 0.2 % (0.0-0.4); Basophil (Absolute #) 0.01 (0-0.4); Eosinophil % 2.3 % (0.00-5.0); Eosinophil (Absolute #) 0.14 (0-0.5); Granulocyte Absolute (ANC) 4.12 (1.4-6.9); Granulocytes % 67.3 % (36.0-66.0); Hematocrit 37.4 % (35-47); Hemoglobin 12.2 gm/dl (12.0-16.0); Lymphocyte (Absolute #) 1.45 (1.0-4.6); Lymphocytes % 23.7 % (24.0-44.0); Mean Corpuscular Hemoglobin 28.7 pg (26-32); Mean Corpuscular Hgb Concent. 32.6 g/dl (32-36); Mean Platelet Volume 11.2 fl (6-9.5); Monocytes % 6.5 % (0.0-12.0); Platelet Count 127 K/mm3 (150-450); Red Blood Count 4.25 M/mm3 (4.1-5.4); Red Cell Distribution Width 14.2 % (11.5-14.0); White Blood Count 6.1 K/mm3 (4.0-10.5)
[2018-01-29 17:49] LABS: ANION GAP 11.7 MEQ/L (5-15); BLOOD UREA NITROGEN 16 mg/dL (7-17); CHLORIDE 111 mmol/L (98-107); Calcium 9.3 mg/dL (8.4-10.2); Carbon Dioxide 25 mmol/L (22-30); Creatinine 1 0.72 mg/dL (0.52-1.04); Glucose 105 mg/dL (74-106); Potassium 4.1 mmol/L (3.5-5.1); SODIUM 144 mmol/L (137-145)
[2018-01-29 17:54] LABS: Amphetamine,Urine NEGATIVE (NEGATIVE); Barbiturate,Urine NEGATIVE (NEGATIVE); Benzodiazepine,Urine POSITIVE (NEGATIVE); Cocaine,Urine NEGATIVE (NEGATIVE); Methadone,Urine NEGATIVE (NEGATIVE); PCP,Urine NEGATIVE (NEGATIVE); THC,Urine NEGATIVE (NEGATIVE)
[2018-01-29 18:24] LABS: Appearance CLOUDY (CLEAR); Bilirubin NEGATIVE (NEGATIVE); Blood 50 Ery/ul (0-5); Glucose NEGATIVE (NEGATIVE); Ketones NEGATIVE (NEGATIVE); Leukocyte Esterase 2+ (NEGATIVE); Mucus SLIGHT /HPF (NEGATIVE); Nitrite POSITIVE (NEGATIVE); Protein,Urine Dip 30 (Negative); Specific Gravity 1.015 (1.005-1.025); Urobilinogen NORMAL mg/dL (0-1)
[2018-01-29 18:25] LABS: Bacteria PACKED /HPF (NEGATIVE); Epithelial Cells MODERATE /HPF (FEW); WBC >100 /HPF (0-5)
[2018-01-29 18:28] LABS: Opiate,Urine NEGATIVE (NEGATIVE)
[2018-01-29] MEDS ORDERED: LEVOFLOXACIN 750MG/150ML D5W 750 MG/150 ML BAG IV STA (19:09)
[2018-01-29] MEDS ORDERED: LEVOFLOXACIN 750MG/150ML D5W 750 MG/150 ML BAG IV ONE (19:11)
[2018-01-29] MEDS ORDERED: ROCEPHIN 250 MG INJ IM ONE (19:53)
[2018-01-29] MEDS ORDERED: Levofloxacin 250MG Tablet PO ONE (19:54)
[2018-01-29] MEDS ORDERED: NORCO 5/325 MG PO ONE (19:55)
[2018-01-29] MEDS ORDERED: NORCO 5/325 MG ONE (20:02)
[2018-01-29] MEDS ORDERED: Levofloxacin 500 MG Tablet ONE (20:02)
[2018-01-29 20:53] VITALS: BP 182/99; PULSE 72; O2SAT 99
--- NOTE | 2018-01-30 08:45 | XRAY ---
Indication: Left pelvic pain and diarrhea. Multiple contiguous axial images obtained through the abdomen and pelvis without contrast as ordered. Comparison: January 01, 2018. Lung bases again demonstrates mild bibasilar dependent atelectasis and scattered calcified granulomas. No infiltrate or effusion. Heart is not enlarged. Stable small hiatal hernia. Noncontrasted stomach and bowel loops appear nonobstructed. Again minimal sigmoid diverticulosis without diverticulitis. Previous appendectomy, cholecystectomy, and hysterectomy. Stable benign chunky calcifications in the gallbladder fossa. Spleen remains enlarged today measuring 14.2 cm in greatest axial dimension again with scattered calcified granulomas. Remaining liver, pancreas, spleen, adrenal glands, kidneys, ureters, and bladder appear unremarkable for noncontrast exam. Stable moderate aortoiliac calcifications without AAA. Osseous structures intact again with mild multilevel degenerative spondylosis, remote T12 compression fracture, and remote right inferior pubic bone fracture. Impression: 1. Stable hiatal hernia, benign chunky calcifications in the gallbladder fossa, splenomegaly, sigmoid diverticulosis, and evidence for old granulomatous disease. 2. No new/acute intra-abdominal/pelvic abnormalities on this noncontrast exam. CT DI 17.39
== END 2018-01-29 20:47 | disposition home or self-care (01) ==
LOC: ED 16:01
DX: N30.00 Acute cystitis without hematuria (principal); Z79.899 Other long term (current) drug therapy; R10.31 Right lower quadrant pain
CPT/HCPCS: 36415; 74176; 80048; 80307; 81000; 85025; 87077; 87086; 87186; 96360; 96361; 96365; 96366; 96372; 96374; 99283; 99284; 99285; J0696; J1885; J1956; A9270-GY

== ENCOUNTER 2018-02-08 17:08 | Emergency (ER) | payer MEDICAID ==
[2018-02-08 17:24] VITALS: BP 160/95; PULSE 68; O2SAT 94
== END 2018-02-08 18:30 | disposition left against medical advice (07) ==
LOC: ED 17:08
DX: Z53.21 Procedure and treatment not carried out due to patient leaving prior to being seen by health care provider (principal)
CPT/HCPCS: 99283; G0463

== ENCOUNTER 2018-04-26 11:36 | Emergency (ER) | payer MEDICAID ==
[2018-04-26] MEDS ORDERED: TYLENOL 325 MG PO STA (11:47)
[2018-04-26] MEDS ORDERED: TYLENOL 325 MG ONE (11:50)
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
[2018-04-26 12:22] LABS: BASOPHIL % 0.3 % (0.0-0.4); Basophil (Absolute #) 0.02 (0-0.4); Eosinophil % 0.8 % (0.00-5.0); Eosinophil (Absolute #) 0.05 (0-0.5); Granulocyte Absolute (ANC) 4.54 (1.4-6.9); Granulocytes % 68.3 % (36.0-66.0); Hematocrit 42.2 % (35-47); Hemoglobin 14.1 gm/dl (12.0-16.0); Lymphocyte (Absolute #) 1.64 (1.0-4.6); Lymphocytes % 24.7 % (24.0-44.0); Mean Cell Volume 85.1 fl (78-100); Mean Corpuscular Hemoglobin 28.4 pg (26-32); Mean Corpuscular Hgb Concent. 33.4 g/dl (32-36); Mean Platelet Volume 11.6 fl (6-9.5); Monocyte (Absolute #) 0.39 (0.0-1.3); Monocytes % 5.9 % (0.0-12.0); Platelet Count 152 K/mm3 (150-450); Red Blood Count 4.96 M/mm3 (4.1-5.4); Red Cell Distribution Width 16.2 % (11.5-14.0); White Blood Count 6.6 K/mm3 (4.0-10.5)
[2018-04-26] MEDS ORDERED: Hydromorphone 1 mg/ml Ampule IM ONE (12:32)
[2018-04-26 12:37] LABS: ALBUMIN 4.7 g/dL (3.5-5.0); ALKALINE PHOSPHATASE 96 U/L (38-126); ANION GAP 11.5 MEQ/L (5-15); BLOOD UREA NITROGEN 13 mg/dL (7-17); CHLORIDE 103 mmol/L (98-107); Calcium 9.8 mg/dL (8.4-10.2); Carbon Dioxide 29 mmol/L (22-30); Creatinine 1 0.62 mg/dL (0.52-1.04); Glucose 101 mg/dL (74-106); LIPASE 33 U/L (23-300); Potassium 3.9 mmol/L (3.5-5.1); SGOT/AST 29 U/L (14-36); SGPT/ALT 19 U/L (0-35); SODIUM 140 mmol/L (137-145)
[2018-04-26] MEDS ORDERED: DILAUDID 2 MG INJECTION ONE (12:41)
--- NOTE | 2018-04-26 13:10 | XRAY ---
Indication: Left abdomen/hip pain. No known injury. Multiple contiguous axial images obtained through the abdomen and pelvis without contrast as ordered. Comparison: September 15, 2017, January 01, 2018, and January 29, 2018. Lung bases again demonstrates minimal bibasilar dependent atelectasis/scarring and scattered calcified granulomas. No infiltrate or effusion. Heart is not enlarged. Stable small hiatal hernia. Noncontrasted stomach and bowel loops again appear nonobstructed again with minimal colonic diverticulosis. Again previous cholecystectomy with stable benign chunky calcifications in the gallbladder fossa. Also previous reported appendectomy and hysterectomy. No free fluid/air. Spleen remains enlarged measuring 13 cm includes axial dimension again with scattered calcified granulomas. Remaining liver, pancreas, spleen, adrenal glands, kidneys, ureters, and bladder appear unremarkable for noncontrast exam. Stable mild aortoiliac calcifications without AAA. Osseous structures intact again with stable remote T12 endplate fracture, multilevel degenerative spondylosis, and old right inferior pubic bone fracture. Impression: 1. Stable small hiatal hernia, benign chunky calcifications in the gallbladder fossa, splenomegaly, colonic diverticulosis, evidence for granulomatous disease, remote T12 endplate fracture, remote right inferior pubic bone fracture, and multilevel degenerative spondylosis. 2. No new or acute intra-abdominal/pelvic abnormalities on this noncontrast exam. CT DI 13.14
--- NOTE | 2018-04-26 13:14 | XRAY ---
Indication: Left-sided hip pain. Axial, coronal, and sagittal reformatted images of the lumbar spine performed using the right data from the CT abdomen/pelvis study the same day. Comparison: None. There is MRI lumbar spine February 19, 2018. Remote appearing T12 superior endplate fracture with approximately 50% height loss. L1-L2 and L5-S1 mild broad-based disc bulge and minimal degenerative vacuum disc phenomena. Also L5-S1 foraminal stenosis, left greater than right. No large disc herniation or spinal canal stenosis. Sagittal and coronal reformatted images demonstrates normal alignment with L1-L2 and L5-S1 disc space loss. No acute compression fracture or subluxation. CT abdomen/pelvis reported separately. Impression: 1. Remote T12 endplate fracture. L1-L2 and L5-S1 degenerative disc disease. Findings are similar to MRI lumbar spine exam. 2. Remaining CT lumbar spine is negative.
[2018-04-26 13:23] LABS: Appearance CLEAR (CLEAR); Bilirubin NEGATIVE (NEGATIVE); Blood NEGATIVE Ery/ul (0-5); Glucose NEGATIVE (NEGATIVE); Ketones NEGATIVE (NEGATIVE); Leukocyte Esterase NEGATIVE (NEGATIVE); Nitrite NEGATIVE (NEGATIVE); Protein,Urine Dip NEGATIVE (Negative); Specific Gravity 1.005 (1.005-1.025); Urobilinogen NORMAL mg/dL (0-1)
[2018-04-26 13:50] VITALS: BP 108/70; PULSE 63; O2SAT 95
== END 2018-04-26 14:24 | disposition home or self-care (01) ==
LOC: ED 11:36
DX: S39.012A Strain of muscle, fascia and tendon of lower back, initial encounter (principal); M54.5 Low back pain; M25.552 Pain in left hip; Z79.899 Other long term (current) drug therapy
CPT/HCPCS: 36415; 74176; 76376; 80053; 81002; 83690; 85025; 96372; 99284; P9612; J1170; A9270-GY

== ENCOUNTER 2018-06-22 10:15 | Emergency (ER) | payer MEDICAID ==
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
--- NOTE | 2018-06-22 12:24 | XRAY ---
Indication: Pain 1 month. No known injury. Comparison: Pelvis exam September 29, 2014. AP pelvis and 2 views of the right hip demonstrates osteopenia, scattered vascular calcifications, and old right superior/inferior pubic rami fractures. New acute to subacute appearing nondisplaced left superior/inferior pubic rami fractures. No other bony, articular, or soft tissue abnormalities.
--- NOTE | 2018-06-22 12:28 | XRAY ---
Indication: Low back pain. Comparison: CT lumbar spine April 26, 2018. 3 views of the lumbar spine again demonstrates osteopenia, remote T12 compression fracture, L1-L2/L5-S1 degenerative disc disease, cholecystectomy clips with benign chunky calcifications, calcified splenic granulomas, and scattered aortoiliac calcifications. No new/acute findings.
[2018-06-22 14:47] VITALS: BP 105/74; PULSE 87; O2SAT 99
== END 2018-06-22 14:35 | disposition home or self-care (01) ==
LOC: ED 10:15
DX: M25.551 Pain in right hip (principal); M54.9 Dorsalgia, unspecified; Z79.899 Other long term (current) drug therapy
CPT/HCPCS: 72100; 73502; 99284

== ENCOUNTER 2018-08-25 22:12 | Emergency (ER) | payer MEDICAID ==
[2018-08-25] MEDS ORDERED: NORCO 5/325 MG PO ONE (23:02)
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
[2018-08-25] MEDS ORDERED: NORCO 5/325 MG ONE (23:07)
[2018-08-26] MEDS ORDERED: NORCO 5/325 MG PO ONE ×2 (01:25→02:44)
[2018-08-26] MEDS ORDERED: NORCO 5/325 MG ONE ×2 (01:31→02:49)
[2018-08-26 01:50] VITALS: O2SAT 94
[2018-08-26 03:00] VITALS: BP 136/78; PULSE 64
--- NOTE | 2018-08-26 10:25 | XRAY ---
Indication: Pain following fall. Multiple contiguous axial images obtained through the chest without contrast as ordered. Comparison: January 02, 2018. Lungs inflated with worsening moderate bilateral dependent atelectasis and new tiny effusions. New left upper lobe subsegmental atelectasis. Stable scattered calcified granulomas. Heart is not enlarged. Stable mild aortic calcifications without aneurysmal dilatation. Stable mediastinal and bilateral hilar calcified nodes. Stable small hiatal hernia and left thyroid subcentimeter calcified nodule. Bony thorax intact again demonstrates osteopenia and remote T7/T8/L1 compression fractures. New T12 superior endplate fracture with approximately 25% height loss of uncertain chronicity. Limited upper abdomen again demonstrates calcified splenic granulomas and benign chunky calcifications in the gallbladder fossa. Impression: 1. Worsening bilateral atelectasis with new tiny effusions. 2. Stable left thyroid calcified nodule, small hiatal hernia, and evidence for old granulomatous disease. 3. New T12 endplate fracture of uncertain chronicity. Stable remote T7/T8/L1 compression fractures. Comment: Preliminary interpretation was made by [facility]. No critical discrepancy. CTDI 17.20
--- NOTE | 2018-08-26 10:28 | XRAY ---
Indication: Pain following fall. Comparison: January 01, 2018. PA/lateral chest underinflated today with new bibasilar infiltrates versus atelectasis. Stable calcified granulomas. Heart is not enlarged. Bony thorax intact again with osteopenia and degenerative changes. Stable multilevel remote thoracic compression deformities with new mild T12 compression deformity and new distal right clavicle fracture. Comment: Fractures not reported on preliminary interpretation by the ER clinician. Telephone report given to Dr. Horan at 1026 hrs. on August 26, 2018.
--- NOTE | 2018-08-26 10:30 | XRAY ---
Indication: Pain following fall. Comparison: None 3 views of the right elbow demonstrates osteopenia and anterior medial soft tissue swelling. No other bony, articular, or soft tissue abnormalities.
--- NOTE | 2018-08-26 10:32 | XRAY ---
Indication: Pain following fall. Comparison: None 2 views of the right humerus demonstrates osteopenia, mild AC degenerative arthropathy, and minimally displaced distal clavicle acute fracture. No other bony, articular, or soft tissue abnormalities. Elbow and chest reported severally. Comment: Fracture not reported on preliminary interpretation by the ER clinician. Telephone report given to Dr. Horan at 1026 hrs. on August 26, 2018.
== END 2018-08-26 02:45 | disposition home or self-care (01) ==
LOC: ED 22:12
DX: S22.089A Unspecified fracture of T11-T12 vertebra, initial encounter for closed fracture (principal); M54.6 Pain in thoracic spine; S50.01XA Contusion of right elbow, initial encounter; M25.521 Pain in right elbow; M79.601 Pain in right arm; W19.XXXA Unspecified fall, initial encounter; Z79.899 Other long term (current) drug therapy
CPT/HCPCS: 71046; 71250; 73060; 73080; 99284; A9270-GY

== ENCOUNTER 2018-11-30 10:00 | Emergency (ER) | payer MEDICAID ==
[2018-11-30] MEDS ORDERED: PROVENTIL 2.5 MG/3 ML NEB IH ONE ×3 (10:07→10:21)
[2018-11-30] MEDS ORDERED: Zithromax 500 MG/ 250 ML NaCl Premix 500 MG/250 ML IVPB IV STA (10:16)
[2018-11-30] MEDS ORDERED: ROCEPHIN 2 Gm-D5w 50ML BAG** 2 G/50 ML IVPB IV STA (10:19)
[2018-11-30] MEDS ORDERED: solu-MEDROL 125 MG IV ONE (10:20)
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
[2018-11-30] MEDS ORDERED: Sodium Chloride 0.9% 1000 ML 1,000 ML IV STA ×2 (10:28→10:29)
[2018-11-30] MEDS ORDERED: ROCEPHIN 2 Gm-D5w 50ML BAG** 2 G/50 ML IVPB IV ONE (10:29)
[2018-11-30] MEDS ORDERED: Sodium Chloride 0.9% 1000 ML 1,000 ML ONE ×3 (10:30→13:21)
--- NOTE | 2018-11-30 10:38 | XRAY ---
Indication: Comparison: August 25, 2018. Portable chest demonstrates new patchy right lung infiltrates without consolidation/large effusion. Remaining heart and lungs unremarkable again with scattered calcified granulomas. Bony thorax demonstrates osteopenia, degenerative changes, nonunited distal right clavicle fracture, and old proximal left humeral fracture. Impression: New right lung patchy infiltrates.
[2018-11-30] MEDS ORDERED: BABY ASPIRIN 81 MG CHEW PO ONE (10:47)
[2018-11-30 10:50] LABS: Lactic Acid 4.1 (0.4-2.0); VBG BASE EXCESS -2.7 (-2.0-2.0); VBG CARBOXYHEMOGLOBIN 3.7 % T HGB (0.0-6.9); VBG HCO3- 22.6 meq/L (22-28); VBG HEMOGLOBIN 11.9; VBG O2 SATURATION 61.2 (95-100); VBG PCO2 40 mm/Hg (42-55); VBG PO2 30 mm/Hg (25-40); VBG POTASSIUM 3.6 (3.5-5.1); VBG pH 7.36 (7.32-7.42)
[2018-11-30 11:22] LABS: Hematocrit 40.9 % (35-47); Hemoglobin 12.8 gm/dl (12.0-16.0); Mean Cell Volume 87.2 fl (78-100); Mean Corpuscular Hemoglobin 27.3 pg (26-32); Mean Corpuscular Hgb Concent. 31.3 g/dl (32-36); Mean Platelet Volume 10.9 fl (6-9.5); Platelet Count 161 K/mm3 (150-450); Red Blood Count 4.69 M/mm3 (4.1-5.4); Red Cell Distribution Width 15.3 % (11.5-14.0)
[2018-11-30 11:29] LABS: INFLUENZA A NEGATIVE (NEGATIVE); INFLUENZA B NEGATIVE (NEGATIVE); RESPIRATORY SYNCTIAL VIRUS NEGATIVE (Negative)
[2018-11-30 11:43] LABS: INR 1.26 (0.8-3.0); PROTIME 14.7 SECONDS (9.95-12.35)
[2018-11-30] MEDS ORDERED: SUBLIMAZE 100 MCG/2 ML ONE ×2 (11:45→12:06)
[2018-11-30] MEDS ORDERED: VERSED 5 MG/5 ML ONE (11:45)
[2018-11-30] MEDS ORDERED: Zemuron 100 MG/10 ML ONE ×2 (11:45→13:15)
[2018-11-30 11:46] LABS: ALBUMIN 3.8 g/dL (3.5-5.0); ALKALINE PHOSPHATASE 106 U/L (38-126); ANION GAP 17.6 MEQ/L (5-15); BLOOD UREA NITROGEN 23 mg/dL (7-17); CHLORIDE 106 mmol/L (98-107); Calcium 9.1 mg/dL (8.4-10.2); Carbon Dioxide 24 mmol/L (22-30); Creatinine 1 0.73 mg/dL (0.52-1.04); Glucose 118 mg/dL (74-106); MAGNESIUM 2.1 mg/dL (1.6-2.3); NT PRO BNP 2520 pg/mL (0-900); SGOT/AST 30 U/L (14-36); SGPT/ALT 19 U/L (0-35); SODIUM 144 mmol/L (137-145); Total Protein 6.6 g/dL (6.3-8.2)
[2018-11-30 11:47] LABS: BAND 29 % (0.0-2.0); Lymphocytes 8 % (24-44); Monocyte 4 % (0.0-12.0); Neutrophils 59 % (36.0-66.0); Total Cells Counted 100
[2018-11-30 11:48] LABS: ANISOCYTOSIS 1+; Platelet Estimate NORMAL (NORMAL); Polychromasia 1+
[2018-11-30 11:49] LABS: Granulocyte Absolute (ANC) 4.4 (1.4-6.9)
[2018-11-30] MEDS ORDERED: BENADRYL 50 MG/ML ONE (11:52)
[2018-11-30] MEDS ORDERED: Versed 50 MG/ 10 Ml MDV*** 50 MG in Sodium Chloride 0.9% 250 ML 240 ML IV SCH (12:00)
[2018-11-30 12:40] LABS: A-aADO2 345; ABG HEMOGLOBIN 11.8; ARTERIAL BLD GAS O2 SATURATION 98.9 % (95-100); ARTERIAL BLD GAS TIDAL VOLUME 600 cc; ARTERIAL BLOOD GAS BASE EXCESS -5.6 (-2.0-2.0); ARTERIAL BLOOD GAS FIO2 80 %; ARTERIAL BLOOD GAS PCO2 48 mmHg (35-45); ARTERIAL BLOOD GAS PEEP 5 cmH2O; ARTERIAL BLOOD GAS PO2 165 mmHg (75-100); ARTERIAL BLOOD GAS VENT MODE A/C; ARTERIAL BLOOD GAS pH 7.26 (7.35-7.45); CARBOXYHEMOGLOBIN 1.9 % THgb (0.0-6.9); HCO3- 21.5 (22-28); HGB O2 SAT 96.3 g/dF (94-100); Methhemoglobin 0.7 % (1.4-1.5); paO2 pAO1 0.32
[2018-11-30 12:41] LABS: ABG POTASSIUM 2.5 (3.5-5.1); ABG SITE RIGHT BRACHIAL
--- NOTE | 2018-11-30 12:45 | XRAY ---
Indication: Line placements. Comparison: Taken earlier in the day. Portable chest demonstrates new endotracheal tube tip 2 cm above the [place], new right subclavian central venous access catheter with tip right atrium, and new NG tube traversing the chest with the tip presumed in the stomach. No pneumothorax. Stable right lung patchy infiltrates and scattered calcified granulomas. Minimally displaced right lateral 8 rib fracture not well seen previously. Impression: New support catheter/tubing in situ without complications.
[2018-11-30] MEDS ORDERED: DUONEB 0.5-3 MG/3 ml Neb IH ONE ×2 (12:50→12:51)
[2018-11-30] MEDS ORDERED: Zithromax 500 MG/ 250 ML NaCl Premix 500 MG/250 ML IVPB IV ONE (12:52)
[2018-11-30] MEDS ORDERED: ENOXAPARIN SODIUM SQ ONE (12:55)
[2018-11-30] MEDS ORDERED: POTASSIUM CHLORIDE 20 mEq IN WATER 100ML 20 MEQ/100 ML BAG IV ONE (12:56)
[2018-11-30] MEDS ORDERED: POTASSIUM CHLORIDE 20 mEq IN WATER 100ML 100 ML IV ONE (13:07)
[2018-11-30] MEDS ORDERED: Zemuron 100 MG/10 ML IV ONE (13:19)
[2018-11-30] MEDS ORDERED: Sodium Chloride 0.9% 1000 ML 1,000 ML IV SCH (13:30)
[2018-11-30 13:31] VITALS: O2SAT 73
[2018-11-30 13:57] VITALS: BP 143/75; PULSE 119
[2018-11-30 13:59] LABS: Appearance CLEAR (CLEAR); Bacteria RARE /HPF (NEGATIVE); Bilirubin NEGATIVE (NEGATIVE); Blood SMALL Ery/ul (0-5); Glucose NEGATIVE (NEGATIVE); Ketones NEGATIVE (NEGATIVE); Leukocyte Esterase NEGATIVE (NEGATIVE); Mucus SLIGHT /HPF (NEGATIVE); Nitrite NEGATIVE (NEGATIVE); Protein,Urine Dip NEGATIVE (Negative); RBC 0-2 /HPF (0-2); Specific Gravity 1.013 (1.005-1.025); Urobilinogen 2 mg/dL (0-1)
== END 2018-11-30 14:01 | disposition short-term general hospital (02) ==
LOC: ED 10:00
DX: J18.8 Other pneumonia, unspecified organism (principal); J96.90 Respiratory failure, unspecified, unspecified whether with hypoxia or hypercapnia; J44.1 Chronic obstructive pulmonary disease with (acute) exacerbation; I10 Essential (primary) hypertension; Z79.899 Other long term (current) drug therapy
CPT/HCPCS: 31500; 36415; 36600; 51702; 71045; 80053; 81001; 82375; 82803; 82805; 83605; 83735; 83880; 84484; 85025; 85379; 85610; 87040; 87631; 93005; 94002; 94640; 94799; 96360; 96361; 96365; 96367; 96372; 96374; 99285; 99291; 99292; J0456; J0696; J1200; J1650; J2250; J3010; J3480; J7609; A9270-GY

== ENCOUNTER 2019-10-31 11:14 | Emergency (ER) | payer MEDICAID ==
[2019-10-31] MEDS ORDERED: MORPHINE SULFATE 4 MG INJ IM ONE (12:21)
[2019-10-31] MEDS ORDERED: MORPHINE SULFATE 4 MG INJ ONE (12:23)
[2019-10-31 12:28] VITALS: BP 97/67; O2SAT 95
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
--- NOTE | 2019-10-31 12:51 | XRAY ---
Indication: Pain following fall. Comparison: None 3 views of the left ankle demonstrates mild osteopenia and mild lower leg vascular calcifications. No other bony, articular, or soft tissue abnormalities.
--- NOTE | 2019-10-31 12:53 | XRAY ---
Indication: Pain following fall. Comparison: None 3 nonweightbearing views of the left foot demonstrates osteopenia and nondisplaced distal 2nd/3rd metatarsal shaft fractures. No other bony, articular, or soft tissue abnormalities.
[2019-10-31 13:23] VITALS: PULSE 72
== END 2019-10-31 13:23 | disposition home or self-care (01) ==
LOC: ED 11:14
DX: S82.002A Unspecified fracture of left patella, initial encounter for closed fracture (principal); S92.302A Fracture of unspecified metatarsal bone(s), left foot, initial encounter for closed fracture; W19.XXXA Unspecified fall, initial encounter; Z79.899 Other long term (current) drug therapy; I10 Essential (primary) hypertension; J44.9 Chronic obstructive pulmonary disease, unspecified
CPT/HCPCS: 73610; 73630; 96372; 99284; J2270

== ENCOUNTER 2020-05-28 23:10 | Emergency (ER) | payer MEDICAID ==
[2020-05-28] MEDS ORDERED: Sodium Chloride 0.9% 1000 ML 1,000 ML IV SCH (23:30)
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
[2020-05-28] MEDS ORDERED: Ativan 2 MG/1 ML VIAL ONE (23:52)
[2020-05-29] MEDS ORDERED: Sodium Chloride 0.9% 1000 ML 1,000 ML ONE (00:30)
[2020-05-29 00:38] LABS: Hematocrit 43.4 % (35-47); Hemoglobin 14.2 gm/dl (12.0-16.0); Mean Cell Volume 89.1 fl (78-100); Mean Corpuscular Hemoglobin 29.2 pg (26-32); Mean Corpuscular Hgb Concent. 32.7 g/dl (32-36); Mean Platelet Volume 11.9 fl (7.5-11.0); Platelet Count 189 K/mm3 (150-450); Red Blood Count 4.87 M/mm3 (4.1-5.4); Red Cell Distribution Width 15.5 % (11.5-14.0); White Blood Count 16.9 K/mm3 (4.0-10.5)
[2020-05-29 00:52] LABS: ALBUMIN 4.3 g/dL (3.5-5.0); ALKALINE PHOSPHATASE 79 U/L (38-126); BLOOD UREA NITROGEN 14 mg/dL (7-17); CHLORIDE 108 mmol/L (98-107); Calcium 9.2 mg/dL (8.4-10.2); Glucose 172 mg/dL (74-106); MAGNESIUM 2.1 mg/dL (1.6-2.3); SGOT/AST 31 U/L (14-36); SODIUM 137 mmol/L (137-145); Total Protein 6.3 g/dL (6.3-8.2)
[2020-05-29 00:58] LABS: SGPT/ALT 27 U/L (0-35)
[2020-05-29 01:07] LABS: ACETAMINOPHEN < 10 ug/ml (10-30); Carbon Dioxide 14 mmol/L (22-30); ETHYL ALCOHOL < 10 mg/dL (0-10); SALICYLATE < 1.0 mg/dL (2-20)
[2020-05-29 01:10] LABS: Eosinophil 1 % (0.00-3.0); Lymphocytes 15 % (24-44); Monocyte 7 % (0.0-12.0); Neutrophils 77 % (36.0-66.0); Platelet Estimate NORMAL (NORMAL); Total Cells Counted 100
[2020-05-29 01:16] LABS: A-aADO2 -2; ABG HEMOGLOBIN 14.8; ABG POTASSIUM 3.4 (3.5-5.1); ARTERIAL BLD GAS O2 SATURATION 98.9 % (95-100); ARTERIAL BLOOD GAS BASE EXCESS -11.1 (-2.0-2.0); ARTERIAL BLOOD GAS FIO2 21 %; ARTERIAL BLOOD GAS PCO2 28 mmHg (35-45); ARTERIAL BLOOD GAS PO2 117 mmHg (75-100); HCO3- 13.8 (22-28); HGB O2 SAT 90.5 g/dF (94-100); Methhemoglobin 0.8 % (1.4-1.5); paO2 pAO1 1.02
[2020-05-29 01:17] LABS: ABG SITE LEFT BRACHIAL; CARBOXYHEMOGLOBIN 7.6 % THgb (0.0-6.9)
[2020-05-29 01:56] LABS: Appearance CLOUDY (CLEAR); Bacteria MODERATE /HPF (NEGATIVE); Bilirubin NEGATIVE (NEGATIVE); Blood SMALL Ery/ul (0-5); Epithelial Cells RARE /HPF (FEW); Glucose NEGATIVE (NEGATIVE); Ketones NEGATIVE (NEGATIVE); Leukocyte Esterase TRACE (NEGATIVE); Mucus SLIGHT /HPF (NEGATIVE); Nitrite POSITIVE (NEGATIVE); Protein,Urine Dip 100 (Negative); Specific Gravity 1.018 (1.005-1.025); Urobilinogen 2 mg/dL (0-1)
[2020-05-29] MEDS ORDERED: ROCEPHIN 1 Gm-D5w 50 ml Bag** 1 G/50 ML IVPB IV STA (02:00)
[2020-05-29 02:05] LABS: Barbiturate,Urine NEGATIVE (NEGATIVE); Benzodiazepine,Urine NEGATIVE (NEGATIVE); Cocaine,Urine NEGATIVE (NEGATIVE); Methadone,Urine NEGATIVE (NEGATIVE); Opiate,Urine NEGATIVE (NEGATIVE); PCP,Urine NEGATIVE (NEGATIVE); THC,Urine NEGATIVE (NEGATIVE)
[2020-05-29 02:18] LABS: Amphetamine,Urine POSITIVE (NEGATIVE)
[2020-05-29] MEDS ORDERED: Lactated Ringers 1,000 ML IV ONE ×2 (02:23→03:28)
[2020-05-29 03:20] LABS: A-aADO2 -41; ABG HEMOGLOBIN 13.6; ABG POTASSIUM 3.2 (3.5-5.1); ABG SITE LEFT BRACHIAL; ARTERIAL BLD GAS O2 SATURATION 99.3 % (95-100); ARTERIAL BLOOD GAS BASE EXCESS -2.6 (-2.0-2.0); ARTERIAL BLOOD GAS FIO2 21 %; ARTERIAL BLOOD GAS PCO2 25 mmHg (35-45); ARTERIAL BLOOD GAS PO2 159 mmHg (75-100); ARTERIAL BLOOD GAS pH 7.49 (7.35-7.45); CARBOXYHEMOGLOBIN 6.9 % THgb (0.0-6.9); HCO3- 19.1 (22-28); HGB O2 SAT 91.4 g/dF (94-100); paO2 pAO1 1.35
[2020-05-29] MEDS ORDERED: ROCEPHIN 1 Gm-D5w 50 ml Bag** 1 G/50 ML IVPB IV ONE (03:28)
[2020-05-29] MEDS ORDERED: Rocephin 1000 MG INJ** 1,000 MG in Sodium Chloride 0.9% 100 ML IVPB 100 ML IV ONE (03:51)
[2020-05-29 06:17] VITALS: BP 134/85; PULSE 84; O2SAT 94
--- NOTE | 2020-05-29 09:24 | XRAY ---
Indication: Abdomen and right hip pain following fall. Multiple contiguous axial images obtained through the abdomen and pelvis without contrast as ordered. Comparison: April 26, 2018. Lung bases again demonstrates bibasilar dependent atelectasis and scattered calcified granulomas. No infiltrate, effusion, or pneumothorax. Heart is not enlarged. Stable small hiatal hernia. Noncontrasted stomach and bowel loops remain nonobstructed. Stable cholecystectomy with stable benign chunky calcifications in the gallbladder fossa. No free fluid/air. Again scattered calcified splenic granulomas, appendectomy, and hysterectomy. Remaining liver, pancreas, spleen, adrenal glands, kidneys, ureters, and bladder appear unremarkable for noncontrast exam. Osseous structures demonstrates new angulated comminuted right intertrochanteric acute fracture. Stable multilevel degenerative spondylosis, remote T12 compression fracture, old bilateral rib fractures, and old right inferior pubic bone fracture. New finding for old T11 compression fracture with 50% height loss and old left inferior pubic bone fracture. Impression: 1. New right intertrochanteric acute fracture. Also new finding old T11 compression fracture and old left inferior pubic bone fracture. 2. Stable small hiatal hernia, benign chunky calcifications in the gallbladder fossa, old bilateral rib fractures, remote T12 fracture, remote right inferior pubic bone fracture, and old granulomatous disease. Comment: Preliminary interpretation was made by [facility]. No critical discrepancy.
--- NOTE | 2020-05-29 09:26 | XRAY ---
Indication: Status post fall. Multiple contiguous axial images obtained through the head without contrast. Comparison: September 19, 2017. There is again age-appropriate global atrophy, small right cerebellar infarct, and progressive worsening moderate periventricular degenerative micro-ischemia bilaterally. No acute intracranial hemorrhage, abnormal extra-axial fluid collection, or mass effect. Fourth ventricle is midline without hydrocephalus. Bony calvarium intact. Visualized paranasal sinuses and mastoid air cells are clear. Impression: Continued nonacute senile brain with small old right cerebellar infarct.
--- NOTE | 2020-05-29 09:30 | XRAY ---
Indication: Status post fall. Multiple contiguous axial images obtained through the cervical spine. Sagittal and coronal reformatted images obtained. Comparison: March 13, 2015. Several images slightly degraded by motion artifact even with repeat CT. Axial images grossly negative for acute fracture, suspicious bony lesions, or spinal canal stenosis. There remains mild C4-C7 degenerative endplate spurring and left C3-C5 facet hypertrophy. Sagittal and coronal reformatted images again demonstrates grossly normal alignment with minimal C4-C7 disc space narrowing. No gross acute compression fracture, subluxation, or jumped facets. Normal appearing craniocervical junction. Visualized noncontrasted soft tissues demonstrates stable left thyroid benign-appearing chunky calcification. Impression: 1. Motion artifact. 2. Grossly negative for acute fracture/subluxation. 3. Stable multilevel degenerative changes. Comment: Preliminary interpretation was made by [facility]. No critical discrepancy.
--- NOTE | 2020-05-29 09:36 | XRAY ---
Indication: Pneumonia. Comparison: November 30, 2018. Portable chest demonstrates normal heart and lungs again with incidental scattered calcified granulomas. Bony thorax again demonstrates osteopenia, old left humerus neck fracture, and old nonunited right clavicle fracture. Again multiple right rib fractures increased in number and of uncertain chronicity. Comment: Preliminary interpretation was made by [facility]. No critical discrepancy.
--- NOTE | 2020-05-29 09:38 | XRAY ---
Indication: Pain following fall. Comparison: None 2 view right humerus demonstrate osteopenia, old nonunited distal clavicle fracture, old right rib fractures, and right lung calcified granulomas. No other bony, articular, or soft tissue abnormalities.
--- NOTE | 2020-05-29 09:38 | XRAY ---
Indication: Pain following fall. Comparison: June 22, 2018. AP pelvis and two-view right hip demonstrates new angulated/comminuted right intertrochanteric fracture. Stable osteopenia, old bilateral inferior pubic bone fractures, and scattered vascular calcifications. Comment: Preliminary interpretation was made by [facility]. No critical discrepancy.
== END 2020-05-29 06:57 | disposition short-term general hospital (02) ==
LOC: ED 23:10
DX: R56.9 Unspecified convulsions (principal); N39.0 Urinary tract infection, site not specified; R41.82 Altered mental status, unspecified; S72.141A Displaced intertrochanteric fracture of right femur, initial encounter for closed fracture; S42.001A Fracture of unspecified part of right clavicle, initial encounter for closed fracture; E87.2 Acidosis; D72.829 Elevated white blood cell count, unspecified; W18.30XA Fall on same level, unspecified, initial encounter; Y93.9 Activity, unspecified; Z79.899 Other long term (current) drug therapy; I10 Essential (primary) hypertension; Z86.73 Personal history of transient ischemic attack (TIA), and cerebral infarction without residual deficits; Z72.0 Tobacco use
CPT/HCPCS: 36000; 36415; 36600; 51702; 70450; 71045; 72125; 73060; 73502; 74176; 80053; 80307; 81001; 82375; 82803; 83605; 83735; 84484; 85025; 87040; 87077; 87086; 87186; 93005; 93041; 94760; 96360; 96361; 96365; 96374; 99285; 99291; 99292; J0696; J2060; G0480

== ENCOUNTER 2020-09-24 05:47 | Emergency (ER) | payer MEDICAID ==
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
[2020-09-24 07:31] LABS: Absolute Neutrophil Ct (ANC) 8.05 (1.4-6.9); BASOPHIL % 0.1 % (0.0-0.4); Basophil (Absolute #) 0.01 (0-0.4); Eosinophil % 0.2 % (0.00-5.0); Eosinophil (Absolute #) 0.02 (0-0.5); Hematocrit 41.3 % (35-47); Hemoglobin 13.6 gm/dl (12.0-16.0); Lymphocyte (Absolute #) 0.69 (1.0-4.6); Lymphocytes % 7.5 % (24.0-44.0); Mean Cell Volume 86.6 fl (78-100); Mean Corpuscular Hemoglobin 28.5 pg (26-32); Mean Corpuscular Hgb Concent. 32.9 g/dl (32-36); Mean Platelet Volume 10.6 fl (7.5-11.0); Monocyte (Absolute #) 0.41 (0.0-1.3); Monocytes % 4.5 % (0.0-12.0); Neutrophil % 87.7 % (36.0-66.0); Platelet Count 124 K/mm3 (150-450); Red Blood Count 4.77 M/mm3 (4.1-5.4); Red Cell Distribution Width 14.7 % (11.5-14.0); White Blood Count 9.2 K/mm3 (4.0-10.5)
[2020-09-24 07:33] LABS: INR 1.12 (0.8-3.0); PROTIME 12.7 SECONDS (9.95-12.35)
[2020-09-24 07:37] LABS: Carbon Dioxide 25 mmol/L (22-30); Creatinine 1 0.53 mg/dL (0.52-1.04); EST GLOMERULAR FILTRATION RATE > 60.0 ML/MIN; SGOT/AST 34 U/L (14-36); SGPT/ALT 22 U/L (0-35)
[2020-09-24 07:53] LABS: ALBUMIN 4.4 g/dL (3.5-5.0); ALKALINE PHOSPHATASE 102 U/L (38-126); ANION GAP 11.7 MEQ/L (5-15); BLOOD UREA NITROGEN 11 mg/dL (7-17); CHLORIDE 102 mmol/L (98-107); Calcium 9.5 mg/dL (8.4-10.2); Glucose 127 mg/dL (74-106); Potassium 3.9 mmol/L (3.5-5.1); SODIUM 135 mmol/L (137-145); Total Protein 6.7 g/dL (6.3-8.2)
[2020-09-24 08:03] LABS: Appearance SLIGHTLY CLOUDY (CLEAR); Bilirubin NEGATIVE (NEGATIVE); Blood NEGATIVE Ery/ul (0-5); Glucose NEGATIVE (NEGATIVE); Ketones NEGATIVE (NEGATIVE); Leukocyte Esterase TRACE (NEGATIVE); Mucus SLIGHT /HPF (NEGATIVE); Nitrite POSITIVE (NEGATIVE); Protein,Urine Dip 30 (Negative); Specific Gravity 1.017 (1.005-1.025); Urobilinogen NEGATIVE mg/dL (0-1)
[2020-09-24 08:04] LABS: Amphetamine,Urine NEGATIVE (NEGATIVE); Barbiturate,Urine NEGATIVE (NEGATIVE); Benzodiazepine,Urine NEGATIVE (NEGATIVE); Cocaine,Urine NEGATIVE (NEGATIVE); Methadone,Urine NEGATIVE (NEGATIVE); Opiate,Urine NEGATIVE (NEGATIVE); PCP,Urine NEGATIVE (NEGATIVE); THC,Urine NEGATIVE (NEGATIVE)
[2020-09-24 08:05] LABS: Epithelial Cells FEW /HPF (FEW)
[2020-09-24] MEDS ORDERED: Sodium Chloride 0.9% 1000 ML 1,000 ML IV STA (08:09)
[2020-09-24] MEDS ORDERED: Sodium Chloride 0.9% 1000 ML 1,000 ML ONE (08:17)
--- NOTE | 2020-09-24 08:45 | XRAY ---
Indication: Altered mental status. Multiple contiguous axial images obtained through the head without contrast. Comparison: May 28, 2020. Several images are slightly degraded by motion artifact even with repeat CT. Grossly stable age-appropriate global atrophy, moderate periventricular degenerative micro-ischemia, and small old right cerebellar infarct. No gross acute intracranial hemorrhage, abnormal extra-axial fluid collection, or mass effect. Fourth ventricle is midline without hydrocephalus. Bony calvarium grossly intact. There remains partial opacification of both mastoid air cells presumed inflammatory. Paranasal sinuses are clear. Impression: 1. Motion artifact. 2. Continued grossly nonacute senile brain with again small old right cerebellar infarct and partial opacification mastoid air cells.
[2020-09-24 09:03] VITALS: BP 168/93
--- NOTE | 2020-09-24 09:17 | XRAY ---
Indication: Elevated lactate. Comparison: May 29, 2020. Portable chest markedly underinflated and reasonably explains new bibasilar subsegmental atelectasis and enlarged heart. Stable scattered pulmonary/mediastinal calcified granulomas. Remaining heart and lungs unremarkable. Bony thorax intact again with osteopenia, degenerative changes, and old left humerus fracture. Impression: Nonacute markedly underinflated chest with chronic features.
[2020-09-24] MEDS ORDERED: ROCEPHIN 1 Gm-D5w 50 ml Bag** 1 G/50 ML IVPB IV STA (09:18)
[2020-09-24] MEDS ORDERED: ROCEPHIN 1 Gm-D5w 50 ml Bag** 1 G/50 ML IVPB IV ONE (09:25)
[2020-09-24 09:33] VITALS: PULSE 92; O2SAT 98
== END 2020-09-24 10:10 | disposition home or self-care (01) ==
LOC: ED 05:47
DX: R41.82 Altered mental status, unspecified (principal); N39.0 Urinary tract infection, site not specified
CPT/HCPCS: 36000; 36415; 70450; 71045; 80053; 80307; 81001; 82140; 83605; 85025; 85610; 87077; 87086; 87186; 93005; 93041; 94760; 96360; 96365; 99284; 99291; J0696